=== PATIENT | female | born 1955 | race Caucasian/White ===

== ENCOUNTER 2016-03-30 19:32 | Inpatient (IN) | payer OTHER ==
[~2016-03-30] VITALS: Ht 160 cm; Wt 79.7 kg
[~2016-03-30 19:32] MED LIST: ADVA100A INH; ASPI81TA82 PO; ATOR40TA16 PO; FURO20TA PO; HYDR10TA65 PO; HYDR50CA PO; LEVO200T4 PO; METO25TA3 PO; NITR0.4S SL; PANT40TA3 PO; PLAV75TA29 PO; POTA-163 PO; SYMB160A INH; VENTAER INH; ZOFR4TAB PO
[2016-03-30 19:40] VITALS: PULSE 107; RESP 18; TEMP 97.4; O2SAT 97
[2016-03-31] VITALS (14 sets, daily range): BP systolic 80–142; BP diastolic 46–92; PULSE 91–123; RESP 14–20; TEMP 98; O2SAT 88–100
[2016-03-31] MEDS ORDERED: SODIUM CHLOR 0.9% 1000 ML INJ 1,000 ML IV SCH (06:49)
--- NOTE | 2016-03-31 06:57 | PD ---
HPI Chief Complaint: Abdominal Pain Time Seen by Provider: 06:46 Travel History International Travel<30 days: No Contact w/Intl Traveler<30days: No Traveled to known affect area: No History of Present Illness HPI Patient is a 60-year-old female who presents to emergency room with complaints of nausea vomiting for the past 5 days. Patient reports that she has not been able to eat or drink anything for the past 5 days, reports that today, she began to have diarrhea. Patient reports that her daughter is sick with similar symptoms. Patient denies fevers, reports chills. She reports pain to her lower abdomen. Patient denies taking any recent antibiotics. Patient with no recent travels PFSH Past Medical History Hx Anticoagulant Therapy: Yes (PLAVIX) Arthritis: Yes Asthma: Yes Autoimmune Disease: Yes Blood Disorders: No Anxiety: Yes Depression: Yes Heart Rhythm Problems: Yes Cancer: No Cardiac Catheterization: Yes Cardiovascular Problems: Yes (HTN, CHF) High Cholesterol: Yes Chemotherapy: No Chest Pain: Yes Congestive Heart Failure: Yes COPD: Yes Cerebrovascular Accident: No Coronary Artery Disease: Yes Diabetes: No Diminished Hearing: No Endocrine: Yes (APRIL DISEASE) Gastrointestinal Disorders: No GERD: Yes Glaucoma: No Genitourinary: No Headaches: No Hepatitis: No Hiatal Hernia: No Hypertension: Yes Immune Disorder: No Kidney Stones: No Musculoskeletal: Yes Neurologic: No Psychiatric: Yes Reproductive: Yes Respiratory: Yes (ASTHMA, COPD) Immunizations Current: No Migraines: No Myocardial Infarction: Yes Radiation Therapy: No Renal Failure: No Seizures: No Sickle Cell Disease: No Sleep Apnea: No Thyroid Disease: Yes Ulcer: No Menopausal: Yes : 2 Para: 2 Miscarriage: 0 : 0 Ovarian Cysts: Yes Tubal Ligation: Yes Past Surgical History Abdominal Surgery: No AICD: No Appendectomy: No Arteriovenous Shunt: No Body Medical Devices: ADDISONS DISEASE, OVER ACTIVE RENAL GLAND Cardiac Surgery: Yes (MITRAL VALVE REPLACEMENT, CABG) Section: Yes Cholecystectomy: No Coronary Artery Bypass Graft: Yes (CABG X 4) Ear Surgery: No Endocrine Surgery: Yes Eye Surgery: No Genitourinary Surgery: No Gynecologic Surgery: Yes (TUBAL LIGATION 40 YEARS AGO) Hysterectomy: Yes Insulin Pump: No Joint Replacement: No Oral Surgery: Yes (TEETH EXTRACTIONS) Pacemaker: No Thoracic Surgery: No Tonsillectomy: Yes Other Surgery: Yes Social History Alcohol Use: No Tobacco Use: No Substance Use: No Allergies-Medications (Allergen,Severity, Reaction): Coded Allergies: Tylenol (Verified Allergy, Severe, AGGRIVATES LIVER?, 03/30/16) Reported Meds & Prescriptions Reported Meds & Active Scripts Active Potassium Chloride ER (Potassium Chloride) 20 Meq Tab 20 Meq PO BID Ventolin Hfa 18 GM Inh (Albuterol Sulfate) 90 Mcg/Act Aer 1 Puff INH DAILY PRN Atorvastatin (Atorvastatin Calcium) 40 Mg Tab 40 Mg PO HS Pantoprazole (Pantoprazole Sodium) 40 Mg Tab 40 Mg PO DAILY Hydroxyzine Pamoate 50 Mg Cap 50 Mg PO TID PRN Plavix (Clopidogrel Bisulfate) 75 Mg Tab 75 Mg PO DAILY Aspir-81 (Aspirin) 81 Mg Tab 81 Mg PO DAILY Reported Metoprolol Tartrate 25 Mg Tab 25 Mg PO BID Symbicort Inh (Budesonide/Formoterol Fumarate) 160-4.5 Mcg/Act Aero 2 Puff INH Q12HR Advair Diskus Inh (Fluticasone-Salmeterol Inh) 100-50 Mcg/Blist Aer 1 Puff INH DAILY Rinse mouth after use. Furosemide 20 Mg Tab 20 Mg PO DAILY Levothyroxine (Levothyroxine Sodium) 200 Mcg Tab 200 Mcg PO DAILY Zofran (Ondansetron HCl) 4 Mg Tab 4 Mg PO Q12HR PRN Hydrocortisone 10 Mg Tab 10 Mg PO TID Take with food to decrease GI upset Nitrostat SL (Nitroglycerin) 0.4 Mg Subl 0.4 Mg SL DIRECTED PRN 1 tablet under the tongue as needed for chest pain. Repeat every 5 minutes for a total of 3 DOSES or call 911 if NO relief. Review of Systems General / Constitutional: No: Fever Eyes: No: Visual changes HENT: No: Headaches Cardiovascular: No: Chest Pain or Discomfort Respiratory: No: Shortness of Breath Gastrointestinal: Positive: Nausea, Vomiting, Diarrhea, Abdominal Pain Genitourinary: No: Dysuria Musculoskeletal: No: Pain Skin: No Rash Neurologic: No: Weakness Psychiatric: No: Depression Endocrine: No: Polydipsia Hematologic/Lymphatic: No: Easy Bruising Physical Exam Narrative GENERAL: nad SKIN: Warm and dry. HEAD: Atraumatic. Normocephalic. EYES: Pupils equal and round. No scleral icterus. No injection or drainage. ENT: No nasal bleeding or discharge. Mucous membranes pink and moist. NECK: Trachea midline. No JVD. CARDIOVASCULAR: Regular rate and rhythm. No murmur appreciated. RESPIRATORY: No accessory muscle use. Clear to auscultation. Breath sounds equal bilaterally. GASTROINTESTINAL: Abdomen soft, tenderness to lower abdomen with guarding on exam MUSCULOSKELETAL: No obvious deformities. No clubbing. No cyanosis. No edema. NEUROLOGICAL: Awake and alert. No obvious cranial nerve deficits. Motor grossly within normal limits. Normal speech. PSYCHIATRIC: Appropriate mood and affect; insight and judgment normal. Data Data Last Documented VS Vital Signs Date Time Temp Pulse Resp B/P Pulse Ox O2 Delivery O2 Flow Rate FiO2 03/31/16 06:06 18 03/30/16 19:40 97.4 107 97 Room Air Orders Complete Blood Count With Diff (03/31/16 06:49) Comprehensive Metabolic Panel (03/31/16 06:49) Lipase (03/31/16 06:49) Prothrombin Time / Inr (Pt) (03/31/16 06:49) Act Partial Throm Time (Ptt) (03/31/16 06:49) Urinalysis - C+S If Indicated (03/31/16 06:49) Ct Abd/Pel W/O Iv Contrast (03/31/16 06:49) Iv Access Insert/Monitor (03/31/16 06:49) Ecg Monitoring (03/31/16 06:49) Oximetry (03/31/16 06:49) Ondansetron Inj (Zofran Inj) (03/31/16 07:00) Sodium Chlor 0.9% 1000 Ml Inj (Ns 1000 M (03/31/16 06:49) Sodium Chloride 0.9% Flush (Ns Flush) (03/31/16 07:00) Electrocardiogram (03/31/16 06:49) Lactic Acid Sepsis Protocol (03/31/16 07:25) Blood Culture (03/31/16 07:25) Vancomycin Inj (Vancomycin Inj) (03/31/16 07:25) Piperacil-Tazo 4.5 Gm Premix (Zosyn 4.5 (03/31/16 07:25) Sodium Chlor 0.9% 1000 Ml Inj (Ns 1000 M (03/31/16 07:25) Sodium Chlor 0.9% 1000 Ml Inj (Ns 1000 M (03/31/16 07:25) Sodium Chlor 0.9% 1000 Ml Inj (Ns 1000 M (03/31/16 07:25) MDM Medical Decision Making Medical Screen Exam Complete: Yes Emergency Medical Condition: Yes Interpretation(s) Vital Signs Date Time Temp Pulse Resp B/P Pulse Ox O2 Delivery O2 Flow Rate FiO2 03/31/16 06:06 18 03/30/16 19:40 97.4 107 18 97 Room Air Differential Diagnosis Gastroenteritis, acute colitis, small bowel obstruction Narrative Course Patient is a 60 year old female who presents to ER with c/o of abdominal pain, Pt reports increased nausea and vomiting for the past 5 days. Patient reports that she has not been able to eat or drink for the past 5 days, reports that she has had increased diarrhea since this morning. Pt reports increased n/v/d for past 5 days. iv ordered, will hydrate pt with ivf, iv zofran given to patient, ct abdomen and pelvis ordered to further evaluate pt's abdominal pain Xiomara Velasco DO Mar 31, 2016 06:57
[2016-03-31] MEDS ORDERED: SODIUM CHLORIDE 0.9% FLUSH 5 ML FLUSH IVF PRN (07:00)
[2016-03-31] MEDS ORDERED: ONDANSETRON HCL 4 MG/2 ML VIAL IVP ONE (07:00)
--- NOTE | 2016-03-31 07:20 | RADRPT ---
EXAM DATE/TIME: 03/31/2016 06:57 [facility] COMPARISON: CT ABDOMEN & PELVIS W/O CONTRAST, March 28, 2015, 23:45. INDICATIONS : Evaluate for calculi. ORAL CONTRAST: No oral contrast ingested. RADIATION DOSE: 9.96 CTDIvol (mGy) MEDICAL HISTORY : Hypertension. SURGICAL HISTORY : Hysterectomy. ENCOUNTER: Initial ACUITY: 1 day PAIN SCALE: 9/10 LOCATION: abdomen. TECHNIQUE: Volumetric scanning of the abdomen and pelvis was performed. Using automated exposure control and ad justment of the mA and/or kV according to patient size, radiation dose was kept as low as reasonably achievable to obtain optimal diagnostic quality images. FINDINGS: LOWER LUNGS: The visualized lower lungs are clear. LIVER: Homogeneous density without lesion. There is no dilation of the biliary tree. No calcified gallston es. SPLEEN: Normal size without lesion. PANCREAS: Within normal limits. KIDNEYS: Normal in size and shape. There is no mass, stone, or hydronephrosis. No calcifications along the c ourse of ureters. ADRENAL GLANDS: Within normal limits. VASCULAR: There is no aortic aneurysm. Wall calcification in the abdominal aorta similar to prior. BOWEL/MESENTERY: The stomach, small bowel, and colon demonstrate no acute abnormality. There is no free intraperitone al air or fluid. ABDOMINAL WALL: Within normal limits. RETROPERITONEUM: There is no lymphadenopathy. BLADDER: No wall thickening or mass. REPRODUCTIVE: Within normal limits. INGUINAL: There is no lymphadenopathy or hernia. MUSCULOSKELETAL: Within normal limits for patient age. CONCLUSION: No evidence of renal stone, ureteral stone, or hydronephrosis. Nixon Ladd MD on March 31, 2016 at 7:16 Board Certified Radiologist. This report was verified electronically.
[2016-03-31] MEDS ORDERED: SODIUM CHLOR 0.9% 1000 ML INJ 1,000 ML IV ONE ×2 (07:25)
[2016-03-31] MEDS ORDERED: VANCOMYCIN INJ 1,000 MG in SODIUM CHLOR 0.9% 250 ML INJ 250 ML IV STA (07:25)
[2016-03-31] MEDS ORDERED: PIPERACIL-TAZO 4.5 GM PREMIX 100 ML IV STA (07:25)
[2016-03-31] MEDS ORDERED: SODIUM CHLOR 0.9% 1000 ML INJ 400 ML IV ONE (07:25)
[2016-03-31] MEDS ORDERED: methylPREDNISolone SOD SUCC 125 MG/2 ML VIAL IV PUSH ONE (07:30)
--- NOTE | 2016-03-31 08:31 | RADRPT ---
EXAM DATE/TIME: 03/31/2016 08:22 [facility] COMPARISON: CHEST SINGLE AP, November 16, 2015, 22:43. INDICATIONS : Patient complains of abdominal pain, vomiting, and shortness of breath. MEDICAL HISTORY : Hypertension. Chronic obstructive pulmonary disease. SURGICAL HISTORY : CABG. ENCOUNTER: Initial ACUITY: 4 - 6 days PAIN SCORE: 7/10 LOCATION: chest FINDINGS: A single view of the chest demonstrates the lungs to be symmetrically aerated without evidence of mas s, infiltrate or effusion. The cardiomediastinal contours are unremarkable. Sternal wires from prev ious CABG are noted. Osseous structures are intact. CONCLUSION: No acute disease. Amos Grande MD FACR on March 31, 2016 at 8:29 Board Certified Radiologist. This report was verified electronically.
[2016-03-31 09:24] LABS: AUTOMATED NEUTROPHIL # 14.4 TH/MM3 (1.8-7.7); BASOPHIL # 0.1 TH/MM3 (0-0.2); BASOPHIL % 0.7 % (0.0-2.0); EOSINOPHIL # 0.3 TH/MM3 (0-0.4); EOSINOPHIL % 1.9 % (0.0-4.0); HEMATOCRIT 46.2 % (35.0-46.0); HEMO FLAGS DIFF FINAL; LYMPH % 11.2 % (9.0-44.0); LYMPHOCYTE # 2.1 TH/MM3 (1.0-4.8); MEAN CELL VOLUME 88.6 FL (80.0-100.0); MEAN CORPUSCULAR HEMOGLOBIN 29.9 PG (27.0-34.0); MEAN CORPUSCULAR HGB CONC 33.7 % (32.0-36.0); MONO % 7.9 % (0.0-8.0); NEUT % 78.3 % (16.0-70.0); PLATELET COUNT 300 TH/MM3 (150-450); RED BLOOD COUNT 5.21 MIL/MM3 (4.00-5.30); RED CELL DISTRIBUTION WIDTH 14.1 % (11.6-17.2); WHITE BLOOD COUNT 18.4 TH/MM3 (4.0-11.0)
[2016-03-31 09:32] LABS: INTERNATIONAL NORMALIZED RATIO 1.3 RATIO; PROTHROMBIN TIME - PATIENT 14.7 SEC (9.8-11.6)
[2016-03-31 09:33] LABS: APTT (PATIENT) 38.7 SEC (24.3-30.1)
[2016-03-31 09:39] LABS: ANION GAP 13 MEQ/L (5-15); AST (GOT) 39 U/L (15-37); BICARBONATE 20.2 MEQ/L (21.0-32.0); CHLORIDE 98 MEQ/L (98-107); GLOMERULAR FILTRATION RATE 15 ML/MIN (>89); POTASSIUM 4.6 MEQ/L (3.5-5.1); SODIUM (NA) 131 MEQ/L (136-145)
[2016-03-31 10:03] LABS: ALKALINE PHOSPHATASE 144 U/L (45-117); ALT (GPT) 22 U/L (10-53); TOTAL BILIRUBIN ADULT 1.4 MG/DL (0.2-1.0)
[2016-03-31 10:06] LABS: BLOOD UREA NITROGEN 33 MG/DL (7-18)
[2016-03-31] MEDS ORDERED: ASPIRIN 325 MG TAB PO ONE (10:15)
[2016-03-31 10:20] LABS: BACTERIA, URINE OCC /hpf; BLOOD, URINE TRACE (NEG); COMMENT (UR) CULT NOT INDICATED; CULTURE IF INDICATED CULT NOT INDICATED; GLUCOSE,URINE NEG (NEG); HYALINE CAST, URINE 8 /lpf (RARE); KETONE, URINE NEG (NEG); MUCUS URINE FEW /lpf (OCC); NITRITE,URINE NEG (NEG); PH, URINE 5.5 (5.0-8.5); URINE COLOR YELLOW (YELLW/STRAW)
[2016-03-31] MEDS ORDERED: NOREPINEPHRINE 4 MG/4 ML AMP ONE (10:28)
[2016-03-31] MEDS ORDERED: NOREPINEPHRINE-DEXTROSE DRIP 250 ML IV SCH (10:30)
--- NOTE | 2016-03-31 11:21 | RADRPT ---
EXAM DATE/TIME: 03/31/2016 10:59 [facility] COMPARISON: CHEST SINGLE AP, March 31, 2016, 8:22. INDICATIONS : Central line placement MEDICAL HISTORY : Hypertension. Chronic obstructive pulmonary disease. SURGICAL HISTORY : CABG. ENCOUNTER: Initial ACUITY: 4 - 6 days PAIN SCORE: 7/10 LOCATION: Bilateral chest FINDINGS: Right IJ line in good position the pneumothorax. The lungs are clear. Sternal wires and valve repla cement noted. The portion of the bony skeleton visualized is unremarkable. CONCLUSION: Line in good position without pneumothorax. Evidence for previous valve replacement. Amos Grande MD FACR on March 31, 2016 at 11:19 Board Certified Radiologist. This report was verified electronically.
--- NOTE | 2016-03-31 11:26 | PD ---
Data Data Last Documented VS Vital Signs Date Time Temp Pulse Resp B/P Pulse Ox O2 Delivery O2 Flow Rate FiO2 03/31/16 09:58 103 20 84/46 100 Nasal Cannula 3 03/31/16 09:09 98.0 Orders Complete Blood Count With Diff (03/31/16 06:49) Comprehensive Metabolic Panel (03/31/16 06:49) Lipase (03/31/16 06:49) Prothrombin Time / Inr (Pt) (03/31/16 06:49) Act Partial Throm Time (Ptt) (03/31/16 06:49) Urinalysis - C+S If Indicated (03/31/16 06:49) Ct Abd/Pel W/O Iv Contrast (03/31/16 06:49) Iv Access Insert/Monitor (03/31/16 06:49) Ecg Monitoring (03/31/16 06:49) Oximetry (03/31/16 06:49) Ondansetron Inj (Zofran Inj) (03/31/16 07:00) Sodium Chlor 0.9% 1000 Ml Inj (Ns 1000 M (03/31/16 06:49) Sodium Chloride 0.9% Flush (Ns Flush) (03/31/16 07:00) Electrocardiogram (03/31/16 06:49) Lactic Acid Sepsis Protocol (03/31/16 07:25) Blood Culture (03/31/16 07:25) Vancomycin Inj (Vancomycin Inj) (03/31/16 07:25) Piperacil-Tazo 4.5 Gm Premix (Zosyn 4.5 (03/31/16 07:25) Sodium Chlor 0.9% 1000 Ml Inj (Ns 1000 M (03/31/16 07:25) Sodium Chlor 0.9% 1000 Ml Inj (Ns 1000 M (03/31/16 07:25) Sodium Chlor 0.9% 1000 Ml Inj (Ns 1000 M (03/31/16 07:25) Methylprednisolone So Succ Inj (Solumedr (03/31/16 07:30) Consult Vascular Access Team (03/31/16 ) Vascular Poc Ultrasound (03/31/16 ) Chest, Single Ap (03/31/16 ) Troponin I (03/31/16 08:55) Urinary Catheter Insert/Apply (03/31/16 09:59) Aspirin (Aspirin) (03/31/16 10:15) Ed Poc Ultrasound (03/31/16 10:22) Norepinephrine-Dextrose Drip (Levophed-D (03/31/16 10:30) Norepinephrine Inj (Levophed Inj) (03/31/16 10:28) Chest, Single Ap (03/31/16 ) Admit Order (Ed Use Only) (03/31/16 11:09) Labs Laboratory Tests Test 03/31/16 03/31/16 09:00 09:30 White Blood Count 18.4 TH/MM3 Red Blood Count 5.21 MIL/MM3 Hemoglobin 15.6 GM/DL Hematocrit 46.2 % Mean Corpuscular Volume 88.6 FL Mean Corpuscular Hemoglobin 29.9 PG Mean Corpuscular Hemoglobin 33.7 % Concent Red Cell Distribution Width 14.1 % Platelet Count 300 TH/MM3 Mean Platelet Volume 8.5 FL Neutrophils (%) (Auto) 78.3 % Lymphocytes (%) (Auto) 11.2 % Monocytes (%) (Auto) 7.9 % Eosinophils (%) (Auto) 1.9 % Basophils (%) (Auto) 0.7 % Neutrophils # (Auto) 14.4 TH/MM3 Lymphocytes # (Auto) 2.1 TH/MM3 Monocytes # (Auto) 1.4 TH/MM3 Eosinophils # (Auto) 0.3 TH/MM3 Basophils # (Auto) 0.1 TH/MM3 CBC Comment DIFF FINAL Differential Comment Prothrombin Time 14.7 SEC Prothromb Time International 1.3 RATIO Ratio Activated Partial 38.7 SEC Thromboplast Time Sodium Level 131 MEQ/L Potassium Level 4.6 MEQ/L Chloride Level 98 MEQ/L Carbon Dioxide Level 20.2 MEQ/L Anion Gap 13 MEQ/L Blood Urea Nitrogen 33 MG/DL Creatinine 3.17 MG/DL Estimat Glomerular Filtration 15 ML/MIN Rate Random Glucose 77 MG/DL Lactic Acid Level 1.0 mmol/L Calcium Level 9.5 MG/DL Total Bilirubin 1.4 MG/DL Aspartate Amino Transf 39 U/L (AST/SGOT) Alanine Aminotransferase 22 U/L (ALT/SGPT) Alkaline Phosphatase 144 U/L Troponin I 0.09 NG/ML Total Protein 6.0 GM/DL Albumin 3.0 GM/DL Lipase 77 U/L Urine Color YELLOW Urine Turbidity HAZY Urine pH 5.5 Urine Specific [place] 1.017 Urine Protein 30 mg/dL Urine Glucose (UA) NEG mg/dL Urine Ketones NEG mg/dL Urine Occult Blood TRACE Urine Nitrite NEG Urine Bilirubin NEG Urine Urobilinogen LESS THAN 2.0 MG/DL Urine Leukocyte Esterase MOD Urine RBC 1 /hpf Urine WBC 3 /hpf Urine Amorphous Sediment MOD Urine Bacteria OCC /hpf Urine Hyaline Casts 8 /lpf Urine Mucus FEW /lpf Microscopic Urinalysis Comment CULT NOT INDICATED MDM Supervised Visit with BIJAL: No Narrative Course Patient signed out to me by previous provider. Please see associated no for further details. In short patient is a 60-year-old female with history of CAD with previous CABG, HTN, HLD, COPD, Jorge's who presents the emergency department with 5 days of diffuse abdominal pain, nausea vomiting diarrhea. Patient evaluated by previous provider, laboratory workup and imaging were ordered and signed out to me pending results of same. At 7:15 when I took over for her patient's care unfortunately despite her long ED stay patient is not documented to have any blood pressures obtained in our electronic medical record. I asked nursing to perform this and patient is hypotensive. She was given a total 4 L normal saline bolus. Her IVC was ultrasounded initially with respiratory variability and ultimately no respiratory variability. After this, a right IJ central line was placed and patient was started on vasopressor. Laboratory workup notable for leukocytosis 18.4. Acute renal failure with BUN 33, creatinine 3.17. My strong suspicion is that this is prerenal due to patient's nausea vomiting diarrhea. Her troponin is slightly elevated 0.09 but her EKG is at baseline with sinus tachycardia with diffuse T-wave inversions throughout the precordial and lateral leads. This is similar to patient's previous EKG. He not think that this is non-ST elevation PA but rather demand ischemia. Patient had cardiology consult on her last visit with similar troponinemic and recommended medical management. She had an echo in October 2015 showing an EF of 55%. She certainly could tolerate the above IV fluid boluses. Patient's urinalysis unremarkable. Chest x-ray and CT abdomen and pelvis were both negative. Given her history of Chester's, she was treated with stress dose steroids. At this time is my strong suspicion that her hypotension is confounded by hypovolemic shock with addisonian crisis. Patient will be admitted to intensive this or further management. Critical Care Narrative Aggregate critical care time was 55 minutes. Time to perform other separately billable procedures was not included in the critical care time. My time did not include minutes spent treating any other patients simultaneously or on activities that did not directly contribute to the patient's treatment. The services I provided to this patient were to treat and/or prevent clinically significant deterioration that could result in: Cardiopulmonary decompensation, , disability I provided critical care services requiring my management, as noted below: Chart data review, documentation time, medication orders and management, vital sign assessments/reviewing monitor data, ordering and reviewing lab tests, ordering and interpreting/reviewing x-rays and diagnostic studies, care of the patient and discussion of the patient with the admitting physicians. Procedures Procedure Narrative CENTRAL VENOUS LINE: The site was prepped with Betadine and sterilely draped. It was infiltrated with 1% lidocaine plain. The deep vein was cannulated using normal Seldinger technique. A triple lumen central line was placed in the right IJ site and secured with simple interrupted suture. The site was sterilely dressed. The patient tolerated the procedure well. Patient consented to bedside ultrasound. Curvilinear probe was used in the epigastric region revealing initially no respiratory variability of the IVC. Diagnosis Primary Impression: Hypovolemic shock Additional Impressions: Addisonian crisis Leukocytosis Qualified Code: D72.829 - Leukocytosis, unspecified type Nausea vomiting and diarrhea Abdominal pain Qualified Code: R10.84 - Generalized abdominal pain Acute renal failure Qualified Code: N17.9 - Acute renal failure, unspecified acute renal failure type Hypotension Qualified Code: I95.89 - Other specified hypotension Tachycardia Elevated troponin Demand ischemia Admitting Information Admitting Physician Requests: Admit Elli Martinez MD Mar 31, 2016 11:26
--- NOTE | 2016-03-31 11:34 | EKG ---
Date Performed: 03/31/2016 Time Performed: 07:27:51 PTAGE: 60 years EKG: SINUS TACHYCARDIA ST DEVIATION AND MODERATE T-WAVE ABNORMALITY, CONSIDER ANTEROLATERAL ISCH EMIA ABNORMAL ECG PREVIOUS TRACING : 11/20/2015 11.38 Rate has increased, some changes noted in ST/T waves in com parison anteriorly DOCTOR: Dayday Feliciano Interpretating Date/Time 03/31/2016 11:33:11
[2016-03-31] MEDS ORDERED: SODIUM CHLORIDE 0.9% FLUSH 5 ML FLUSH IV FLUSH PRN (12:30)
[2016-03-31] MEDS ORDERED: MISCELLANEOUS NURSING INFORMATION XX SCH (12:30)
[2016-03-31] MEDS ORDERED: ONDANSETRON HCL 4 MG/2 ML VIAL IV PRN (12:30)
[2016-03-31] MEDS ORDERED: DEXTROSE 50% IN WATER 50 ML VIAL(D50) IV PUSH PRN (12:30)
[2016-03-31] MEDS ORDERED: RESP: ALBUTEROL 2.5 MG/IPRATROPIUM 0.5 MG NEB (PRN) INH (12:30)
[2016-03-31] MEDS ORDERED: CHLORHEXIDINE GLUCONATE 2 % 1 PACK (2 CLOTHS) TOP PRN (12:30)
[2016-03-31] MEDS ORDERED: ACETAMINOPHEN 325 MG TAB PO PRN (12:30)
[2016-03-31] MEDS ORDERED: Vancomycin Consult Pharmacy 1 EA OTHER SCH (12:30)
[2016-03-31] MEDS: HYDROCORTISONE SOD SUCCINATE 100 MG VIAL IV PUSH SCH ×3 (15:26→23:42)
[2016-03-31] MEDS: HEPARIN SODIUM - SQ 10,000 UNITS/ML VIAL SQ SCH ×2 (15:27→23:42)
--- NOTE | 2016-03-31 15:55 | HHI.HP ---
[facility] Service Critical Care Medicine Primary Care Physician Rosalba Monroe MD Admission Diagnosis hypovolemic shock, addisonian crisis, rule out sepsis Diagnosis: Chief Complaint: nausea/vomiting Travel History International Travel<30 Days: No Contact w/Intl Traveler <30 Da: No Traveled to Known Affected Are: No History of Present Illness This is a 60yF with h/o Jorge's disease who presents with about 3 days of severe nausea and vomiting. She states she ran out of her hydrocortisone about 3 or 4 days ago, and since then has had progressive nausea and vomiting. she initially presented to the emergency department with significant tachycardia and hypotension. She received 4L NS boluses which she was initially fluid responsive, followed by bedside echocardiogram which demonstrated that she had a plump IVC. At this point she was started on norepinephrine for end-organ perfusion. She was given a dose of steroids in the emergency department since she has not had her own medication in at least 3 days. Her wbc was elevated at 18K so she was started on broad spectrum antibiotics and blood cultures were drawn. Her lactate is normal. Her creatinine is elevated at 3.17. Critical care medicine has been consulted to evaluate her hypotension. I evaluated the patient and she confirmed the above history of nausea and vomiting. denies hematemesis, denies fever, chills, cough, shortness of breath, chest pain. does endorse mild crampy abdominal pain, and only a half-day history of diarrhea. no dark tarry stools. Review of Systems Constitutional: DENIES: Diaphoretic episodes, Fever, Chills, Night Sweats Respiratory: DENIES: Cough, Wheezing, Hemoptysis, Sputum production, Shortness of breath Cardiovascular: DENIES: Chest pain, Palpitations, Dyspnea on Exertion, Lower Extremity Edema Gastrointestinal: COMPLAINS OF: Abdominal pain, Diarrhea, Nausea, Vomiting Past Family Social History Allergies: Coded Allergies: Tylenol (Verified Allergy, Severe, AGGRIVATES LIVER?, 03/30/16) Past Medical History Jorge's disease Depression Anxiety Asthma Arthritis hypertension CHF, unknown type hyperlipidemia CAD GERD [place] Past Surgical History Delivery CABG x 4 Mitral Valve replacement Hysterectomy with BTL Teeth extractions Tonsillectomy Reported Medications Potassium Chloride ER (Potassium Chloride) 20 Meq Tab 20 Meq PO BID Ventolin Hfa 18 GM Inh (Albuterol Sulfate) 90 Mcg/Act Aer 1 Puff INH DAILY PRN Atorvastatin (Atorvastatin Calcium) 40 Mg Tab 40 Mg PO HS Pantoprazole (Pantoprazole Sodium) 40 Mg Tab 40 Mg PO DAILY Hydroxyzine Pamoate 50 Mg Cap 50 Mg PO TID PRN Plavix (Clopidogrel Bisulfate) 75 Mg Tab 75 Mg PO DAILY Aspir-81 (Aspirin) 81 Mg Tab 81 Mg PO DAILY Metoprolol Tartrate 25 Mg Tab 25 Mg PO BID Symbicort Inh (Budesonide/Formoterol Fumarate) 160-4.5 Mcg/Act Aero 2 Puff INH Q12HR Advair Diskus Inh (Fluticasone-Salmeterol Inh) 100-50 Mcg/Blist Aer 1 Puff INH DAILY Rinse mouth after use. Furosemide 20 Mg Tab 20 Mg PO DAILY Levothyroxine (Levothyroxine Sodium) 200 Mcg Tab 200 Mcg PO DAILY Zofran (Ondansetron HCl) 4 Mg Tab 4 Mg PO Q12HR PRN Hydrocortisone 10 Mg Tab 10 Mg PO TID Take with food to decrease GI upset Nitrostat SL (Nitroglycerin) 0.4 Mg Subl 0.4 Mg SL DIRECTED PRN 1 tablet under the tongue as needed for chest pain. Repeat every 5 minutes for a total of 3 DOSES or call 911 if NO relief. Active Ordered Medications See MAR Family History Reviewed and found to be noncontributory to her acute illness. Social History denies tob, etoh, doa. Physical Exam Vital Signs Vital Signs Date Time Temp Pulse Resp B/P Pulse Ox O2 Delivery O2 Flow Rate FiO2 03/31/16 15:20 103 16 111/54 100 Nasal Cannula 3 03/31/16 14:26 105 14 128/71 100 Nasal Cannula 3 03/31/16 13:28 107 16 121/66 100 Nasal Cannula 3 03/31/16 11:59 106 16 100/54 100 Nasal Cannula 3 03/31/16 09:58 103 20 84/46 100 Nasal Cannula 3 03/31/16 09:09 98.0 107 16 80/53 100 Nasal Cannula 3 03/31/16 08:16 117 18 104/50 95 Nasal Cannula 2 03/31/16 07:29 Nasal Cannula 2 03/31/16 07:28 123 16 88/53 88 Room Air 03/31/16 06:06 18 03/30/16 19:40 97.4 107 18 97 Room Air Physical Exam GENERAL: Middle-aged woman, lying in bed HEENT: Normocephalic. Atraumatic. Pupils equally round and reactive. Mucous membranes are moist. NECK: Trachea is midline. There is no JVD. CHEST: Equal chest rise. Clear to auscultation. CARDIOVASCULAR: Normal rate, regular rhythm. S1 and S2 without appreciable murmurs. ABDOMEN: Soft, mildly tender to palpation, nondistended. No guarding or rebound tenderness. MUSCULOSKELETAL: 1+ peripheral edema. 2+ distal pulses. NEUROLOGICAL: RASS 0. Follows commands in all 4 extremity's. No gross focal motor sensory deficits. Laboratory Laboratory Tests Test 03/31/16 03/31/16 09:00 09:30 White Blood Count 18.4 Red Blood Count 5.21 Hemoglobin 15.6 Hematocrit 46.2 Mean Corpuscular Volume 88.6 Mean Corpuscular Hemoglobin 29.9 Mean Corpuscular Hemoglobin 33.7 Concent Red Cell Distribution Width 14.1 Platelet Count 300 Mean Platelet Volume 8.5 Neutrophils (%) (Auto) 78.3 Lymphocytes (%) (Auto) 11.2 Monocytes (%) (Auto) 7.9 Eosinophils (%) (Auto) 1.9 Basophils (%) (Auto) 0.7 Neutrophils # (Auto) 14.4 Lymphocytes # (Auto) 2.1 Monocytes # (Auto) 1.4 Eosinophils # (Auto) 0.3 Basophils # (Auto) 0.1 CBC Comment DIFF FINAL Differential Comment Prothrombin Time 14.7 Prothromb Time International 1.3 Ratio Activated Partial 38.7 Thromboplast Time Sodium Level 131 Potassium Level 4.6 Chloride Level 98 Carbon Dioxide Level 20.2 Anion Gap 13 Blood Urea Nitrogen 33 Creatinine 3.17 Estimat Glomerular Filtration 15 Rate Random Glucose 77 Lactic Acid Level 1.0 Calcium Level 9.5 Total Bilirubin 1.4 Aspartate Amino Transf 39 (AST/SGOT) Alanine Aminotransferase 22 (ALT/SGPT) Alkaline Phosphatase 144 Troponin I 0.09 Total Protein 6.0 Albumin 3.0 Lipase 77 Urine Color YELLOW Urine Turbidity HAZY Urine pH 5.5 Urine Specific [place] 1.017 Urine Protein 30 Urine Glucose (UA) NEG Urine Ketones NEG Urine Occult Blood TRACE Urine Nitrite NEG Urine Bilirubin NEG Urine Urobilinogen LESS THAN 2.0 Urine Leukocyte Esterase MOD Urine RBC 1 Urine WBC 3 Urine Amorphous Sediment MOD Urine Bacteria OCC Urine Hyaline Casts 8 Urine Mucus FEW Microscopic Urinalysis Comment CULT NOT INDICATED Date/Time Procedure Status Source Growth 03/31/16 08:05 Aerobic Blood Culture Received Blood Peripheral Pending 03/31/16 08:05 Anaerobic Blood Culture Received Blood Peripheral Pending Result Diagram: 03/31/16 0900 03/31/16 0900 Assessment and Plan Assessment and Plan Assessment: This is a 60yF with history of Bracken's disease who acutely stopped her steroids and now presents with a few days of nausea, vomiting, diarrhea and tachycardia and hypotension. The differential for her hypotension and tachycardia is hypovolemia secondary to severe dehydration and adrenal insufficiency leading to hemodynamic instability. Certainly acute withdraw of steroids could cause nausea and vomiting, but unlikely to cause abdominal pain and diarrhea. Certainly viral gastroenteritis could be a cause of her symptoms and concomitant steroid withdraw could account for the hypotension. For now, without vasopressors, she would become unstable, and she remains critically ill at this time. Active Problems: Acute adrenal insufficiency Severe Dehydration Possible gastroenteritis Possible septic shock Acute kidney injury Plan: --admit to the ICU --continue vanc with pharmacy dosing and zosyn 2.25gm iv q8h (renal dose) --lemus culture --continue norepinephrine for goal map > 65 --start hydrocortisone 50mg iv q6h --mivf NS @ 100cc/hr. --NPO while nauseated --SQH, SCDs for DVT prophylaxis. no indication for GI prophylaxis --strict I/Os with landry. trend Cr. Critical care time: 34 minutes, exclusive of procedures. Code Status Full Code Magdiel Dumont MD Mar 31, 2016 15:55
[2016-03-31] MEDS: INSULIN NovoLIN REGULAR SUPPLEMENTAL SCALE SQ SCH (18:00)
[2016-03-31] MEDS: PIPERACIL-TAZO 2.25 GM PREMIX 50 ML IV SCH (18:29)
[2016-03-31] MEDS: SODIUM CHLOR 0.9% 1000 ML INJ 1,000 ML IV SCH (18:29)
[2016-03-31] MEDS: SODIUM CHLORIDE 0.9% FLUSH 5 ML FLUSH IV FLUSH SCH (21:00)
[2016-03-31] MEDS: FAMOTIDINE 20 MG TAB PO SCH (23:42)
[2016-04-01] VITALS (24 sets, daily range): BP systolic 116–143; BP diastolic 60–93; PULSE 55–110; RESP 16–20; TEMP 97.8–98.8; O2SAT 94–99
[2016-04-01] MEDS: SODIUM CHLOR 0.9% 1000 ML INJ 1,000 ML IV SCH ×3 (03:00→23:00)
[2016-04-01] MEDS: CHLORHEXIDINE GLUCONATE 2 % 1 PACK (2 CLOTHS) TOP SCH (04:00)
[2016-04-01 04:32] LABS: HEMATOCRIT 37.8 % (35.0-46.0); MEAN CELL VOLUME 89.4 FL (80.0-100.0); MEAN CORPUSCULAR HEMOGLOBIN 29.9 PG (27.0-34.0); MEAN CORPUSCULAR HGB CONC 33.4 % (32.0-36.0); PLATELET COUNT 227 TH/MM3 (150-450); RED BLOOD COUNT 4.22 MIL/MM3 (4.00-5.30); REVIEW FLAG FINAL; WHITE BLOOD COUNT 18.3 TH/MM3 (4.0-11.0)
[2016-04-01 05:01] LABS: BICARBONATE 15.4 MEQ/L (21.0-32.0); POTASSIUM 5.4 MEQ/L (3.5-5.1)
[2016-04-01] MEDS: INSULIN NovoLIN REGULAR SUPPLEMENTAL SCALE SQ SCH ×4 (05:51→17:16)
[2016-04-01] MEDS: HEPARIN SODIUM - SQ 10,000 UNITS/ML VIAL SQ SCH ×3 (06:44→22:20)
[2016-04-01] MEDS: HYDROCORTISONE SOD SUCCINATE 100 MG VIAL IV PUSH SCH ×3 (06:44→22:20)
--- NOTE | 2016-04-01 07:48 | HHI.PR ---
Subjective Remarks f/u; hypotension/nausea. vomiting resting comfortably. nausea/vomiting has resolved. denies pain or any other complaints. Objective Vitals Vital Signs Date Time Temp Pulse Resp B/P Pulse Ox O2 Delivery O2 Flow Rate FiO2 04/01/16 06:00 95 04/01/16 05:00 93 04/01/16 04:00 93 04/01/16 04:00 98.0 96 20 116/63 99 04/01/16 03:00 94 04/01/16 02:00 94 04/01/16 01:00 96 04/01/16 00:00 98.0 96 20 123/60 99 04/01/16 00:00 96 03/31/16 23:00 96 03/31/16 22:00 98.0 94 20 142/92 99 03/31/16 22:00 96 03/31/16 20:43 94 18 136/85 98 Room Air 03/31/16 20:00 100 03/31/16 19:06 91 18 130/80 98 Room Air 03/31/16 18:47 103 14 128/83 96 Room Air 03/31/16 15:20 103 16 111/54 100 Nasal Cannula 3 03/31/16 14:26 105 14 128/71 100 Nasal Cannula 3 03/31/16 13:28 107 16 121/66 100 Nasal Cannula 3 03/31/16 11:59 106 16 100/54 100 Nasal Cannula 3 03/31/16 09:58 103 20 84/46 100 Nasal Cannula 3 03/31/16 09:09 98.0 107 16 80/53 100 Nasal Cannula 3 03/31/16 08:16 117 18 104/50 95 Nasal Cannula 2 I/O 03/31/16 03/31/16 03/31/16 04/01/16 04/01/16 04/01/16 07:00 15:00 23:00 07:00 15:00 23:00 Intake Total 100 ml 1580 ml Output Total 425 ml 350 ml Balance -325 ml 1230 ml Intake Oral 100 ml 480 ml IV Total 1100 ml Output Urine Total 425 ml 350 ml # Voids 0 Result Diagram: 04/01/16 0336 04/01/16 0336 Imaging Last Impressions Abdomen/Pelvis CT 03/31/16 0649 Signed Impressions: Service Date/Time: Thursday, March 31, 2016 06:57 - CONCLUSION: No evidence of renal stone, ureteral stone, or hydronephrosis. Nixon Ladd MD Chest X-Ray 03/31/16 0000 Signed Impressions: Service Date/Time: Thursday, March 31, 2016 10:59 - CONCLUSION: Line in good position without pneumothorax. Evidence for previous valve replacement. Amos Grande MD FACR Objective Remarks GENERAL: This is a well-nourished, well-developed patient, in no apparent distress. CARDIOVASCULAR: Regular rate and regular rhythm without murmurs, gallops, or rubs. RESPIRATORY: Clear to auscultation. Breath sounds equal bilaterally. No wheezes , rales, or rhonchi. GASTROINTESTINAL: Abdomen soft, non-tender, nondistended. Normal, active bowel sounds MUSCULOSKELETAL: Extremities with mild bilateral pedal edema. NEURO: Alert & Oriented x4 to person, place, time, situation. Moves all ext x4 Medications and IVs Current Medications Ondansetron HCl 4 mg 4 mg ONCE ONCE IVP Last administered on 03/31/16 07:17; Start 03/31/16 at 07:00; Stop 03/31/16 at 07:01; Status DC Sodium Chloride (NS 1000 ml Inj) 1,000 ml @ 1,000 mls/hr Q1H IV Last administered on 03/31/16 07:17; Start 03/31/16 at 06:49; Stop 03/31/16 at 07:48; Status DC IV Flush 2 ml 2 ml UNSCH PRN IVF FLUSH AFTER USING IV ACCESS; Start 03/31/16 at 07:00; Stop 03/31/16 at 13:33; Status DC Vancomycin HCl 1000 mg/Sodium Chloride 250 ml @ 250 mls/hr ONCE STAT IV Last administered on 03/31/16 08:25; Start 03/31/16 at 07:25; Stop 03/31/16 at 08:24; Status DC Piperacillin Sod/ Tazobactam Sod 100 ml @ 200 mls/hr ONCE STAT IV Last administered on 03/31/16 08:25; Start 03/31/16 at 07:25; Stop 03/31/16 at 07:54; Status DC Sodium Chloride 1,000 ml @ 1,000 mls/hr Q1H ONCE IV Last administered on 07:33; Start 03/31/16 at 07:25; Stop 03/31/16 at 08:24; Status DC Sodium Chloride 1,000 ml @ 1,000 mls/hr Q1H ONCE IV Last administered on 07:25; Start 03/31/16 at 07:25; Stop 03/31/16 at 08:24; Status DC Sodium Chloride (NS 1000 ml Inj) 400 ml @ 1,000 mls/hr Q24M ONCE IV Last administered on 03/31/16 07:25; Start 03/31/16 at 07:25; Stop 03/31/16 at 07:48; Status DC Methylprednisolone Sodium Succinate (SoluMEDROL INJ) 125 mg ONCE ONCE IV PUSH Last administered on 03/31/16 07:37; Start 03/31/16 at 07:30; Stop 03/31/16 at 07: 31; Status DC Aspirin 325 mg 325 mg ONCE ONCE PO Last administered on 03/31/16 12:05; Start 03/31/16 at 10:15; Stop 03/31/16 at 10:16; Status DC Norepinephrine Bitartrate (Levophed-Dextrose Drip) 250 ml @ 0 mls/hr TITRATE IV Last administered on 03/31/16 11:05; Start 03/31/16 at 10:30 Norepinephrine Bitartrate (Levophed Inj) 4 mg STK-MED ONCE .ROUTE ; Start at 10:28; Stop 03/31/16 at 10:29; Status DC Hydrocortisone Sodium Succinate 50 mg 50 mg Q6HR IV PUSH Last administered on 06:44; Start 03/31/16 at 14:00 Pharmacy Profile Note 0 ml @ 0 mls/hr UNSCH OTHER ; Start 03/31/16 at 12:30 Piperacillin Sod/ Tazobactam Sod (Zosyn 2.25 Gm Premix) 50 ml @ 100 mls/hr Q8H IV Last administered on 04/01/16 00:00; Start 03/31/16 at 16:00 Dextrose (D50w (Vial) Inj) 25 ml UNSCH PRN IV PUSH HYPOGLYCEMIA-SEE COMMENTS; Start 03/31/16 at 12:30 Insulin Human Regular (NovoLIN R SUPPLEMENTAL SCALE) 1 Q6HR SQ Last administered on 04/01/16 00:00; Start 03/31/16 at 18:00 IV Flush (NS Flush) 2 ml UNSCH PRN IV FLUSH FLUSH AFTER USING IV ACCESS; Start 03/31/16 at 12:30 IV Flush (NS Flush) 2 ml BID IV FLUSH ; Start 03/31/16 at 21:00 Acetaminophen (Tylenol) 650 mg Q6H PRN PO PAIN 1-10 AND/OR FEVER >101F; Start 03/31/16 at 12:30; Status UNV Famotidine (Pepcid) 10 mg Q12HR PO Last administered on 03/31/16 23:42; Start 03/31/16 at 21:00 Ondansetron HCl (Zofran Inj) 4 mg Q6H PRN IV NAUSEA OR VOMITING; Start 03/31/16 at 12:30 Albuterol/ Ipratropium (Duoneb Neb) 1 ampule Q2HR NEB PRN INH WHEEZING; Start 03/31/16 at 12:30 Heparin Sodium (Porcine) (Heparin Inj) 5,000 units Q8H SQ Last administered on 04/01/16 06:44; Start 03/31/16 at 14:00 Miscellaneous Information 1 Q361D XX ; Start 03/31/16 at 12:30 Chlorhexidine Gluconate (Chlorhexidine 2% Cloth) 3 pack Taper DAILY@04 TOP ; Start 04/01/16 at 04:00; Stop 03/28/17 at 03:59 Chlorhexidine Gluconate 3 pack 3 pack UNSCH PRN TOP HYGIENIC CARE; Start at 12:30 Sodium Chloride (NS 1000 ml Inj) 1,000 ml @ 100 mls/hr Q10H IV Last administered on 04/01/16 03:00; Start 03/31/16 at 17:00 A/P Assessment and Plan A/P Acute adrenal insufficiency taper down IV steroids- Acute kidney injury / Severe Dehydration due to vomiting improving- continue IV fluid and continue to monitor renal function closely leukocytosis- afebrile- continue Abx- repeat UA and follow the cultures CAD- s/p CABG; resume aspirin and plavix COPD with no exacerbation; resume home meds DVT prophylaxis with subq heparin Discharge Planning possible discharge within the next 24-48 hrs if stable and renal function continues to improve. Neftali Menchaca MD Apr 01, 2016 07:48
[2016-04-01] MEDS: FAMOTIDINE 20 MG TAB PO SCH ×2 (08:08→20:17)
[2016-04-01] MEDS: PIPERACIL-TAZO 2.25 GM PREMIX 50 ML IV SCH ×3 (08:09→16:08)
[2016-04-01] MEDS: SODIUM CHLORIDE 0.9% FLUSH 5 ML FLUSH IV FLUSH SCH ×2 (08:09→20:17)
[2016-04-01] MEDS ORDERED: ASPIRIN 81 MG CHEW TAB ONE (08:26)
[2016-04-01] MEDS: ASPIRIN 81 MG CHEW TAB PO SCH (09:15)
[2016-04-01] MEDS: BUDESONIDE-FORMOTEROL 160/4.5 MCG INHALER INH SCH ×2 (09:16→20:17)
[2016-04-01] MEDS: LEVOTHYROXINE SODIUM 200 MCG TAB PO SCH (09:16)
[2016-04-01] MEDS: CLOPIDOGREL 75 MG TAB PO SCH (09:16)
[2016-04-01 09:44] LABS: BACTERIA, URINE RARE /hpf; BLOOD, URINE LARGE (NEG); GLUCOSE,URINE TRACE mg/dL (NEG); KETONE, URINE 10 mg/dL (NEG); MUCUS URINE FEW /lpf (OCC); NITRITE,URINE NEG (NEG); SQUAMOUS EPITHELIAL CELL URINE <1 /hpf (0-5); TRANSITIONAL EPI CELLS, URINE <1 /hpf; URIC ACID CRYSTALS, URINE FEW /hpf; URINE COLOR YELLOW (YELLW/STRAW)
[2016-04-01 09:47] LABS: COMMENT (UR) CULT NOT INDICATED; CULTURE IF INDICATED CULT NOT INDICATED
[2016-04-01] MEDS ORDERED: VANCOMYCIN 1,000 MG/NS 250 ML IV ONE ×2 (10:00)
[2016-04-02] VITALS (27 sets, daily range): BP systolic 109–127; BP diastolic 73–84; PULSE 55–88; RESP 16–20; TEMP 97.8–98.4; O2SAT 92–99
[2016-04-02] MEDS: PIPERACIL-TAZO 2.25 GM PREMIX 50 ML IV SCH ×2 (00:34→08:58)
[2016-04-02] MEDS: CHLORHEXIDINE GLUCONATE 2 % 1 PACK (2 CLOTHS) TOP SCH (04:00)
[2016-04-02] MEDS: INSULIN NovoLIN REGULAR SUPPLEMENTAL SCALE SQ SCH ×5 (06:00→23:19)
[2016-04-02] MEDS: HEPARIN SODIUM - SQ 10,000 UNITS/ML VIAL SQ SCH (06:27)
[2016-04-02] MEDS: LEVOTHYROXINE SODIUM 200 MCG TAB PO SCH (06:27)
[2016-04-02] MEDS: HYDROCORTISONE SOD SUCCINATE 100 MG VIAL IV PUSH SCH ×2 (06:27→23:13)
[2016-04-02] MEDS: ASPIRIN 81 MG CHEW TAB PO SCH (08:58)
[2016-04-02] MEDS: CLOPIDOGREL 75 MG TAB PO SCH (08:58)
[2016-04-02] MEDS: BUDESONIDE-FORMOTEROL 160/4.5 MCG INHALER INH SCH ×2 (08:58→23:18)
[2016-04-02] MEDS: FAMOTIDINE 20 MG TAB PO SCH ×2 (08:58→23:14)
[2016-04-02] MEDS: SODIUM CHLORIDE 0.9% FLUSH 5 ML FLUSH IV FLUSH SCH ×2 (08:59→23:14)
[2016-04-02] MEDS: SODIUM CHLOR 0.9% 1000 ML INJ 1,000 ML IV SCH ×2 (08:59→17:23)
[2016-04-02 11:07] LABS: HEMATOCRIT 34.3 % (35.0-46.0); MEAN CELL VOLUME 87.7 FL (80.0-100.0); MEAN CORPUSCULAR HEMOGLOBIN 29.5 PG (27.0-34.0); MEAN CORPUSCULAR HGB CONC 33.6 % (32.0-36.0); PLATELET COUNT 221 TH/MM3 (150-450); RED BLOOD COUNT 3.92 MIL/MM3 (4.00-5.30); RED CELL DISTRIBUTION WIDTH 14.2 % (11.6-17.2); REVIEW FLAG FINAL; WHITE BLOOD COUNT 11.3 TH/MM3 (4.0-11.0)
--- NOTE | 2016-04-02 11:52 | HHI.PR ---
Subjective Remarks in no acute distress. denies pain. has diarrhea. no fever. Objective Vitals Vital Signs Date Time Temp Pulse Resp B/P Pulse Ox O2 Delivery O2 Flow Rate FiO2 04/02/16 11:00 82 04/02/16 11:00 98.1 81 18 124/73 98 04/02/16 10:00 74 04/02/16 09:00 75 04/02/16 09:00 75 04/02/16 08:07 96 21 04/02/16 08:00 73 04/02/16 07:00 85 04/02/16 07:00 98.4 78 16 117/81 96 04/02/16 06:00 74 04/02/16 05:07 74 04/02/16 04:59 98.0 77 20 127/73 99 04/02/16 04:00 77 04/02/16 03:00 77 04/02/16 02:00 55 04/02/16 01:00 55 04/02/16 00:00 82 04/02/16 00:00 97.9 82 20 120/73 99 04/01/16 23:00 55 04/01/16 22:00 56 04/01/16 21:00 60 04/01/16 21:00 63 04/01/16 20:00 97.9 84 20 121/82 99 04/01/16 20:00 60 04/01/16 19:00 59 04/01/16 18:00 89 04/01/16 17:00 82 04/01/16 16:00 86 04/01/16 16:00 98.7 84 18 130/82 98 04/01/16 15:00 86 04/01/16 14:00 86 04/01/16 13:00 86 04/01/16 12:00 90 04/01/16 12:00 98.8 88 16 116/93 95 I/O 04/01/16 04/01/16 04/01/16 04/02/16 04/02/16 04/02/16 07:00 15:00 23:00 07:00 15:00 23:00 Intake Total 1580 ml 1828 ml 1580 ml Output Total 350 ml 650 ml 750 ml Balance 1230 ml 1178 ml 830 ml Intake Oral 480 ml 780 ml 480 ml IV Total 1100 ml 1048 ml 1100 ml Output Urine Total 350 ml 650 ml 750 ml # Bowel Movements 1 Result Diagram: 04/02/16 1050 04/01/16 0336 Imaging Last Impressions Abdomen/Pelvis CT 03/31/16 0649 Signed Impressions: Service Date/Time: Thursday, March 31, 2016 06:57 - CONCLUSION: No evidence of renal stone, ureteral stone, or hydronephrosis. Nixon Ladd MD Chest X-Ray 03/31/16 0000 Signed Impressions: Service Date/Time: Thursday, March 31, 2016 10:59 - CONCLUSION: Line in good position without pneumothorax. Evidence for previous valve replacement. Amos Grande MD FACR Objective Remarks GENERAL: This is a well-nourished, well-developed patient, in no apparent distress. CARDIOVASCULAR: Regular rate and regular rhythm without murmurs, gallops, or rubs. RESPIRATORY: Clear to auscultation. Breath sounds equal bilaterally. No wheezes , rales, or rhonchi. GASTROINTESTINAL: Abdomen soft, non-tender, nondistended. Normal, active bowel sounds MUSCULOSKELETAL: Extremities with mild bilateral pedal edema. NEURO: Alert & Oriented x4 to person, place, time, situation. Moves all ext x4 Procedures none Medications and IVs Current Medications Ondansetron HCl 4 mg 4 mg ONCE ONCE IVP Last administered on 03/31/16 07:17; Start 03/31/16 at 07:00; Stop 03/31/16 at 07:01; Status DC Sodium Chloride (NS 1000 ml Inj) 1,000 ml @ 1,000 mls/hr Q1H IV Last administered on 03/31/16 07:17; Start 03/31/16 at 06:49; Stop 03/31/16 at 07:48; Status DC IV Flush 2 ml 2 ml UNSCH PRN IVF FLUSH AFTER USING IV ACCESS; Start 03/31/16 at 07:00; Stop 03/31/16 at 13:33; Status DC Vancomycin HCl 1000 mg/Sodium Chloride 250 ml @ 250 mls/hr ONCE STAT IV Last administered on 03/31/16 08:25; Start 03/31/16 at 07:25; Stop 03/31/16 at 08:24; Status DC Piperacillin Sod/ Tazobactam Sod 100 ml @ 200 mls/hr ONCE STAT IV Last administered on 03/31/16 08:25; Start 03/31/16 at 07:25; Stop 03/31/16 at 07:54; Status DC Sodium Chloride 1,000 ml @ 1,000 mls/hr Q1H ONCE IV Last administered on 07:33; Start 03/31/16 at 07:25; Stop 03/31/16 at 08:24; Status DC Sodium Chloride 1,000 ml @ 1,000 mls/hr Q1H ONCE IV Last administered on 07:25; Start 03/31/16 at 07:25; Stop 03/31/16 at 08:24; Status DC Sodium Chloride (NS 1000 ml Inj) 400 ml @ 1,000 mls/hr Q24M ONCE IV Last administered on 03/31/16 07:25; Start 03/31/16 at 07:25; Stop 03/31/16 at 07:48; Status DC Methylprednisolone Sodium Succinate (SoluMEDROL INJ) 125 mg ONCE ONCE IV PUSH Last administered on 03/31/16 07:37; Start 03/31/16 at 07:30; Stop 03/31/16 at 07: 31; Status DC Aspirin 325 mg 325 mg ONCE ONCE PO Last administered on 03/31/16 12:05; Start 03/31/16 at 10:15; Stop 03/31/16 at 10:16; Status DC Norepinephrine Bitartrate (Levophed-Dextrose Drip) 250 ml @ 0 mls/hr TITRATE IV Last administered on 03/31/16 11:05; Start 03/31/16 at 10:30; Stop 04/01/16 at 07:50; Status DC Norepinephrine Bitartrate (Levophed Inj) 4 mg STK-MED ONCE .ROUTE ; Start at 10:28; Stop 03/31/16 at 10:29; Status DC Hydrocortisone Sodium Succinate 50 mg 50 mg Q6HR IV PUSH Last administered on 06:44; Start 03/31/16 at 14:00; Stop 04/01/16 at 07:50; Status DC Pharmacy Profile Note 0 ml @ 0 mls/hr UNSCH OTHER ; Start 03/31/16 at 12:30 Piperacillin Sod/ Tazobactam Sod (Zosyn 2.25 Gm Premix) 50 ml @ 100 mls/hr Q8H IV Last administered on 04/02/16 08:58; Start 03/31/16 at 16:00 Dextrose (D50w (Vial) Inj) 25 ml UNSCH PRN IV PUSH HYPOGLYCEMIA-SEE COMMENTS; Start 03/31/16 at 12:30 Insulin Human Regular (NovoLIN R SUPPLEMENTAL SCALE) 1 Q6HR SQ Last administered on 04/01/16 17:16; Start 03/31/16 at 18:00 IV Flush (NS Flush) 2 ml UNSCH PRN IV FLUSH FLUSH AFTER USING IV ACCESS; Start 03/31/16 at 12:30 IV Flush (NS Flush) 2 ml BID IV FLUSH Last administered on 04/02/16 08:59; Start 03/31/16 at 21:00 Acetaminophen (Tylenol) 650 mg Q6H PRN PO PAIN 1-10 AND/OR FEVER >101F; Start 03/31/16 at 12:30; Status UNV Famotidine (Pepcid) 10 mg Q12HR PO Last administered on 04/02/16 08:58; Start 03/31/16 at 21:00 Ondansetron HCl (Zofran Inj) 4 mg Q6H PRN IV NAUSEA OR VOMITING; Start 03/31/16 at 12:30 Albuterol/ Ipratropium (Duoneb Neb) 1 ampule Q2HR NEB PRN INH WHEEZING; Start 03/31/16 at 12:30 Heparin Sodium (Porcine) (Heparin Inj) 5,000 units Q8H SQ Last administered on 04/02/16 06:27; Start 03/31/16 at 14:00 Miscellaneous Information 1 Q361D XX ; Start 03/31/16 at 12:30 Chlorhexidine Gluconate (Chlorhexidine 2% Cloth) 3 pack Taper DAILY@04 TOP ; Start 04/01/16 at 04:00; Stop 03/28/17 at 03:59 Chlorhexidine Gluconate 3 pack 3 pack UNSCH PRN TOP HYGIENIC CARE; Start at 12:30 Sodium Chloride (NS 1000 ml Inj) 1,000 ml @ 100 mls/hr Q10H IV Last administered on 04/02/16 08:59; Start 03/31/16 at 17:00 Hydrocortisone Sodium Succinate (SoluCORTEF INJ) 50 mg Q8HR IV PUSH Last administered on 04/02/16 06:27; Start 04/01/16 at 14:00 Aspirin (Aspirin Chew) 81 mg DAILY PO Last administered on 04/02/16 08:58; Start 04/01/16 at 09:00 Budesonide/ Formoterol Fumarate (Symbicort 160-4.5 Inh) 2 puff Q12HR INH Last administered on 04/02/16 08:58; Start 04/01/16 at 09:00 Clopidogrel Bisulfate (Plavix) 75 mg DAILY PO Last administered on 04/02/16 08: 58; Start 04/01/16 at 09:00 Levothyroxine Sodium (Synthroid) 200 mcg DAILY@0600 PO Last administered on 04/02 06:27; Start 04/01/16 at 09:00 Aspirin 81 mg 81 mg STK-MED ONCE .ROUTE Last administered on 04/01/16 08:26; Start 04/01/16 at 08:26; Stop 04/01/16 at 08:43; Status DC Vancomycin HCl/ Sodium Chloride (Vancomycin Inj/ NS 250 ml Inj) 250 ml @ 250 mls/hr ONCE ONCE IV Last administered on 04/01/16 09:38; Start 04/01/16 at 10: 00; Stop 04/01/16 at 10:59; Status DC A/P Assessment and Plan A/P Acute adrenal insufficiency taper down IV steroids- Acute kidney injury / Severe Dehydration due to vomiting improving- continue IV fluid and continue to monitor renal function closely leukocytosis- likely stress-induced- afebrile- improving- blood cultures negative- will stop antibiotic hematuria?- check CPK- hold plavix- will consider urology evaluation if persists - diarrhea- check the stool for c-diff CAD- s/p CABG; hold plavix as noted above COPD with no exacerbation; resume home meds DVT prophylaxis with SCD's- hold subq heparin due to hematuria Discharge Planning not ready for discharge yet. Neftali Menchaca MD Apr 02, 2016 11:52
[2016-04-02 12:19] LABS: BICARBONATE 19.6 MEQ/L (21.0-32.0)
[2016-04-02 13:20] LABS: C. DIFF EPI 027 PRESUMPTIVE NEGATIVE (NEGATIVE); C. DIFF TOXIN PCR NEGATIVE (NEGATIVE)
[2016-04-03] VITALS (21 sets, daily range): BP systolic 117–151; BP diastolic 71–93; PULSE 63–84; RESP 16–18; TEMP 97.7–98.6; O2SAT 94–98
[2016-04-03] MEDS: CHLORHEXIDINE GLUCONATE 2 % 1 PACK (2 CLOTHS) TOP SCH (04:00)
[2016-04-03 05:27] LABS: HEMATOCRIT 33.2 % (35.0-46.0); MEAN CELL VOLUME 88.8 FL (80.0-100.0); MEAN CORPUSCULAR HEMOGLOBIN 29.7 PG (27.0-34.0); MEAN CORPUSCULAR HGB CONC 33.5 % (32.0-36.0); PLATELET COUNT 220 TH/MM3 (150-450); RED BLOOD COUNT 3.74 MIL/MM3 (4.00-5.30); REVIEW FLAG FINAL; WHITE BLOOD COUNT 10.1 TH/MM3 (4.0-11.0)
[2016-04-03 05:42] LABS: BICARBONATE 19.9 MEQ/L (21.0-32.0); POTASSIUM 3.6 MEQ/L (3.5-5.1)
[2016-04-03] MEDS: LEVOTHYROXINE SODIUM 200 MCG TAB PO SCH (05:48)
[2016-04-03] MEDS: INSULIN NovoLIN REGULAR SUPPLEMENTAL SCALE SQ SCH ×2 (06:00→11:27)
[2016-04-03] MEDS: HYDROCORTISONE SOD SUCCINATE 100 MG VIAL IV PUSH SCH (08:56)
[2016-04-03] MEDS: FAMOTIDINE 20 MG TAB PO SCH (08:56)
[2016-04-03] MEDS: ASPIRIN 81 MG CHEW TAB PO SCH (08:56)
[2016-04-03] MEDS: SODIUM CHLOR 0.9% 1000 ML INJ 1,000 ML IV SCH ×2 (09:03→16:11)
[2016-04-03] MEDS: SODIUM CHLORIDE 0.9% FLUSH 5 ML FLUSH IV FLUSH SCH (09:05)
[2016-04-03] MEDS: BUDESONIDE-FORMOTEROL 160/4.5 MCG INHALER INH SCH (09:05)
--- NOTE | 2016-04-03 11:23 | HHI.PR ---
Subjective Remarks in no distress. still with hematuria. d/w the RN and reportedly had diarrhea. Objective Vitals Vital Signs Date Time Temp Pulse Resp B/P Pulse Ox O2 Delivery O2 Flow Rate FiO2 04/03/16 10:00 66 04/03/16 09:00 75 04/03/16 08:03 98 21 04/03/16 08:00 65 04/03/16 07:00 98.4 65 18 127/77 98 04/03/16 07:00 75 04/03/16 06:00 84 04/03/16 05:00 80 04/03/16 04:15 98.6 70 18 123/71 95 04/03/16 04:00 68 04/03/16 03:00 69 04/03/16 02:00 67 04/03/16 01:00 67 04/03/16 00:15 98.1 64 16 117/75 97 04/03/16 00:00 64 04/02/16 23:00 66 04/02/16 22:00 71 04/02/16 21:00 67 04/02/16 20:50 98.3 66 16 127/84 92 04/02/16 20:00 69 04/02/16 19:00 84 04/02/16 18:00 73 04/02/16 17:00 70 04/02/16 16:00 75 04/02/16 15:00 97.8 78 18 109/73 99 04/02/16 15:00 88 04/02/16 14:00 79 04/02/16 13:00 78 04/02/16 12:00 84 I/O 04/02/16 04/02/16 04/02/16 04/03/16 04/03/16 04/03/16 07:00 15:00 23:00 07:00 15:00 23:00 Intake Total 1580 ml 2002 ml 420 ml Output Total 750 ml 550 ml 675 ml Balance 830 ml 1452 ml -255 ml Intake Oral 480 ml 960 ml 420 ml IV Total 1100 ml 1042 ml Output Urine Total 750 ml 550 ml 675 ml # Bowel Movements 2 1 Result Diagram: 04/03/16 0500 04/03/16 0500 Imaging Last Impressions Abdomen/Pelvis CT 03/31/16 0649 Signed Impressions: Service Date/Time: Thursday, March 31, 2016 06:57 - CONCLUSION: No evidence of renal stone, ureteral stone, or hydronephrosis. Nixon Ladd MD Chest X-Ray 03/31/16 0000 Signed Impressions: Service Date/Time: Thursday, March 31, 2016 10:59 - CONCLUSION: Line in good position without pneumothorax. Evidence for previous valve replacement. Amos Grande MD FACR Objective Remarks GENERAL: This is a well-nourished, well-developed patient, in no apparent distress. CARDIOVASCULAR: Regular rate and regular rhythm without murmurs, gallops, or rubs. RESPIRATORY: Clear to auscultation. Breath sounds equal bilaterally. No wheezes , rales, or rhonchi. GASTROINTESTINAL: Abdomen soft, non-tender, nondistended. Normal, active bowel sounds MUSCULOSKELETAL: Extremities with mild bilateral pedal edema. NEURO: Alert & Oriented x4 to person, place, time, situation. Moves all ext x4 Procedures none Medications and IVs Current Medications Ondansetron HCl 4 mg 4 mg ONCE ONCE IVP Last administered on 03/31/16 07:17; Start 03/31/16 at 07:00; Stop 03/31/16 at 07:01; Status DC Sodium Chloride (NS 1000 ml Inj) 1,000 ml @ 1,000 mls/hr Q1H IV Last administered on 03/31/16 07:17; Start 03/31/16 at 06:49; Stop 03/31/16 at 07:48; Status DC IV Flush 2 ml 2 ml UNSCH PRN IVF FLUSH AFTER USING IV ACCESS; Start 03/31/16 at 07:00; Stop 03/31/16 at 13:33; Status DC Vancomycin HCl 1000 mg/Sodium Chloride 250 ml @ 250 mls/hr ONCE STAT IV Last administered on 03/31/16 08:25; Start 03/31/16 at 07:25; Stop 03/31/16 at 08:24; Status DC Piperacillin Sod/ Tazobactam Sod 100 ml @ 200 mls/hr ONCE STAT IV Last administered on 03/31/16 08:25; Start 03/31/16 at 07:25; Stop 03/31/16 at 07:54; Status DC Sodium Chloride 1,000 ml @ 1,000 mls/hr Q1H ONCE IV Last administered on 07:33; Start 03/31/16 at 07:25; Stop 03/31/16 at 08:24; Status DC Sodium Chloride 1,000 ml @ 1,000 mls/hr Q1H ONCE IV Last administered on 07:25; Start 03/31/16 at 07:25; Stop 03/31/16 at 08:24; Status DC Sodium Chloride (NS 1000 ml Inj) 400 ml @ 1,000 mls/hr Q24M ONCE IV Last administered on 03/31/16 07:25; Start 03/31/16 at 07:25; Stop 03/31/16 at 07:48; Status DC Methylprednisolone Sodium Succinate (SoluMEDROL INJ) 125 mg ONCE ONCE IV PUSH Last administered on 03/31/16 07:37; Start 03/31/16 at 07:30; Stop 03/31/16 at 07: 31; Status DC Aspirin 325 mg 325 mg ONCE ONCE PO Last administered on 03/31/16 12:05; Start 03/31/16 at 10:15; Stop 03/31/16 at 10:16; Status DC Norepinephrine Bitartrate (Levophed-Dextrose Drip) 250 ml @ 0 mls/hr TITRATE IV Last administered on 03/31/16 11:05; Start 03/31/16 at 10:30; Stop 04/01/16 at 07:50; Status DC Norepinephrine Bitartrate (Levophed Inj) 4 mg STK-MED ONCE .ROUTE ; Start at 10:28; Stop 03/31/16 at 10:29; Status DC Hydrocortisone Sodium Succinate 50 mg 50 mg Q6HR IV PUSH Last administered on 06:44; Start 03/31/16 at 14:00; Stop 04/01/16 at 07:50; Status DC Pharmacy Profile Note 0 ml @ 0 mls/hr UNSCH OTHER ; Start 03/31/16 at 12:30; Stop 04/02/16 at 11:54; Status DC Piperacillin Sod/ Tazobactam Sod (Zosyn 2.25 Gm Premix) 50 ml @ 100 mls/hr Q8H IV Last administered on 04/02/16 08:58; Start 03/31/16 at 16:00; Stop 04/02/16 at 11:54; Status DC Dextrose (D50w (Vial) Inj) 25 ml UNSCH PRN IV PUSH HYPOGLYCEMIA-SEE COMMENTS; Start 03/31/16 at 12:30 Insulin Human Regular (NovoLIN R SUPPLEMENTAL SCALE) 1 Q6HR SQ Last administered on 04/02/16 23:19; Start 03/31/16 at 18:00 IV Flush (NS Flush) 2 ml UNSCH PRN IV FLUSH FLUSH AFTER USING IV ACCESS; Start 03/31/16 at 12:30 IV Flush (NS Flush) 2 ml BID IV FLUSH Last administered on 04/03/16 09:05; Start 03/31/16 at 21:00 Acetaminophen (Tylenol) 650 mg Q6H PRN PO PAIN 1-10 AND/OR FEVER >101F; Start 03/31/16 at 12:30; Status UNV Famotidine (Pepcid) 10 mg Q12HR PO Last administered on 04/03/16 08:56; Start 03/31/16 at 21:00 Ondansetron HCl (Zofran Inj) 4 mg Q6H PRN IV NAUSEA OR VOMITING; Start 03/31/16 at 12:30 Albuterol/ Ipratropium (Duoneb Neb) 1 ampule Q2HR NEB PRN INH WHEEZING; Start 03/31/16 at 12:30 Heparin Sodium (Porcine) (Heparin Inj) 5,000 units Q8H SQ Last administered on 04/02/16 06:27; Start 03/31/16 at 14:00; Status Hold Miscellaneous Information 1 Q361D XX ; Start 03/31/16 at 12:30 Chlorhexidine Gluconate (Chlorhexidine 2% Cloth) 3 pack Taper DAILY@04 TOP ; Start 04/01/16 at 04:00; Stop 03/28/17 at 03:59 Chlorhexidine Gluconate 3 pack 3 pack UNSCH PRN TOP HYGIENIC CARE; Start at 12:30 Sodium Chloride (NS 1000 ml Inj) 1,000 ml @ 100 mls/hr Q10H IV Last administered on 04/03/16 09:03; Start 03/31/16 at 17:00 Hydrocortisone Sodium Succinate (SoluCORTEF INJ) 50 mg Q8HR IV PUSH Last administered on 04/02/16 06:27; Start 04/01/16 at 14:00; Stop 04/02/16 at 11:54; Status DC Aspirin (Aspirin Chew) 81 mg DAILY PO Last administered on 04/03/16 08:56; Start 04/01/16 at 09:00 Budesonide/ Formoterol Fumarate (Symbicort 160-4.5 Inh) 2 puff Q12HR INH Last administered on 04/03/16 09:05; Start 04/01/16 at 09:00 Clopidogrel Bisulfate (Plavix) 75 mg DAILY PO Last administered on 04/02/16 08: 58; Start 04/01/16 at 09:00; Status Hold Levothyroxine Sodium (Synthroid) 200 mcg DAILY@0600 PO Last administered on 05:48; Start 04/01/16 at 09:00 Aspirin 81 mg 81 mg STK-MED ONCE .ROUTE Last administered on 04/01/16 08:26; Start 04/01/16 at 08:26; Stop 04/01/16 at 08:43; Status DC Vancomycin HCl/ Sodium Chloride (Vancomycin Inj/ NS 250 ml Inj) 250 ml @ 250 mls/hr ONCE ONCE IV Last administered on 04/01/16 09:38; Start 04/01/16 at 10: 00; Stop 04/01/16 at 10:59; Status DC Hydrocortisone Sodium Succinate (SoluCORTEF INJ) 50 mg Q12HR IV PUSH Last administered on 04/03/16 08:56; Start 04/02/16 at 21:00 A/P Assessment and Plan A/P Acute adrenal insufficiency taper down IV steroids- Acute kidney injury / Severe Dehydration due to vomiting improving- continue IV fluid and continue to monitor renal function closely leukocytosis- likely stress-induced- afebrile- improving- blood cultures negative- hematuria- - hold plavix- will consult urology. diarrhea- stool negative for c-diff- imodium as needed. CAD- s/p CABG; hold plavix as noted above COPD with no exacerbation; resume home meds DVT prophylaxis with SCD's- hold subq heparin due to hematuria Discharge Planning pending urology evaluation. Neftali Menchaca MD Apr 03, 2016 11:23
[2016-04-03] MEDS ORDERED: LOPERAMIDE HCL 2 MG CAP PO PRN (11:30)
--- NOTE | 2016-04-03 16:08 | HHI.DCPOC ---
Discharge Care Plan Diagnosis: (1) Adrenal crisis Additional Problems low blood pressure. Goals to Promote Your Health * To prevent worsening of your condition and complications * To maintain your health at the optimal level Directions to Meet Your Goals Take your medications as prescribed Follow your dietary instruction Follow activity as directed Keep your appointments as scheduled Take your immunizations and boosters as scheduled If your symptoms worsen call your PCP, if no PCP go to Urgent Care Center or Emergency Room Smoking is Dangerous to Your Health. Avoid second hand smoke Call the 24-hour hour crisis hotline for domestic abuse at Neftali Menchaca MD Apr 03, 2016 16:08
--- NOTE | 2016-04-03 16:10 | HHI.DS ---
Discharge Summary Admission Date Mar 31, 2016 at 11:10 Discharge Date: Apr 03, 2016 Admitting Diagnosis hypovolemic shock, addisonian crisis, rule out sepsis (1) Addisonian crisis ICD Code: E27.2 Diagnosis: Principal Procedures none Brief History - From Admission This is a 60yF with h/o Monmouth's disease who presents with about 3 days of severe nausea and vomiting. She states she ran out of her hydrocortisone about 3 or 4 days ago, and since then has had progressive nausea and vomiting. she initially presented to the emergency department with significant tachycardia and hypotension. She received 4L NS boluses which she was initially fluid responsive, followed by bedside echocardiogram which demonstrated that she had a plump IVC. At this point she was started on norepinephrine for end-organ perfusion. She was given a dose of steroids in the emergency department since she has not had her own medication in at least 3 days. Her wbc was elevated at 18K so she was started on broad spectrum antibiotics and blood cultures were drawn. Her lactate is normal. Her creatinine is elevated at 3.17. Critical care medicine has been consulted to evaluate her hypotension. I evaluated the patient and she confirmed the above history of nausea and vomiting. denies hematemesis, denies fever, chills, cough, shortness of breath, chest pain. does endorse mild crampy abdominal pain, and only a half-day history of diarrhea. no dark tarry stools. CBC/BMP: 04/03/16 0500 04/03/16 0500 Significant Findings Laboratory Tests Test 04/01/16 04/01/16 04/02/16 04/03/16 03:36 08:15 10:50 05:00 White Blood Count 18.3 TH/MM3 11.3 TH/MM3 (4.0-11.0) (4.0-11.0) Sodium Level 132 MEQ/L (136-145) Potassium Level 5.4 MEQ/L (3.5-5.1) Carbon Dioxide Level 15.4 MEQ/L 19.6 MEQ/L 19.9 MEQ/L (21.0-32.0) (21.0-32.0) (21.0-32.0) Anion Gap 17 MEQ/L (5-15) Blood Urea Nitrogen 38 MG/DL (7-18) 30 MG/DL (7-18) 19 MG/DL (7-18) Creatinine 2.77 MG/DL 1.59 MG/DL 1.18 MG/DL (0.50-1.00) (0.50-1.00) (0.50-1.00) Estimat Glomerular Filtration 17 ML/MIN (>89) 33 ML/MIN (>89) 46 ML/MIN (>89) Rate Random Glucose 145 MG/DL 162 MG/DL 153 MG/DL (74-106) (74-106) (74-106) Calcium Level 8.1 MG/DL 8.1 MG/DL 7.9 MG/DL (8.5-10.1) (8.5-10.1) (8.5-10.1) Urine Turbidity HAZY (CLEAR) Urine Ketones 10 mg/dL (NEG) Urine Occult Blood LARGE (NEG) Urine Leukocyte Esterase SMALL (NEG) Urine Uric Acid Crystals FEW /hpf (NONE) Urine Bacteria RARE /hpf (NONE) Urine Mucus FEW /lpf (OCC) Red Blood Count 3.92 MIL/MM3 3.74 MIL/MM3 (4.00-5.30) (4.00-5.30) Hemoglobin 11.5 GM/DL 11.1 GM/DL (11.6-15.3) (11.6-15.3) Hematocrit 34.3 % 33.2 % (35.0-46.0) (35.0-46.0) Chloride Level 109 MEQ/L 113 MEQ/L (98-107) (98-107) PE at Discharge GENERAL: This is a well-nourished, well-developed patient, in no apparent distress. CARDIOVASCULAR: Regular rate and regular rhythm without murmurs, gallops, or rubs. RESPIRATORY: Clear to auscultation. Breath sounds equal bilaterally. No wheezes , rales, or rhonchi. GASTROINTESTINAL: Abdomen soft, non-tender, nondistended. Normal, active bowel sounds MUSCULOSKELETAL: Extremities with mild bilateral pedal edema. NEURO: Alert & Oriented x4 to person, place, time, situation. Moves all ext x4 Hospital Course Acute adrenal insufficiency taper down IV steroids- Acute kidney injury / Severe Dehydration due to vomiting improving- continue IV fluid and continue to monitor renal function closely leukocytosis- likely stress-induced- afebrile- improving- blood cultures negative- hematuria- - f/u with urology as outpatient diarrhea- stool negative for c-diff- imodium as needed. CAD- s/p CABG; resume home meds COPD with no exacerbation; resume home meds Pt Condition on Discharge: Good Discharge Disposition: Discharge Home Discharge Time: <= 30 minutes Discharge Instructions DIET: Follow Instructions for: Heart Healthy Diet Activities you can perform: Regular-No Restrictions Follow up Referrals: PCP Follow-up Urology Changed Medications: Metoprolol Tartrate (Metoprolol Tartrate) 25 Mg Tab 25 MG PO DAILY hypertension Days 30 Ref 0 TAB (Changed from: BID; Removed Quantity) Continued Medications: Albuterol 18 GM Inh (Ventolin Hfa 18 GM Inh) 90 Mcg/Act Aer 1 PUFF INH DAILY PRN SHORTNESS OF BREATH #1 Ref 3 INHALER Aspirin (Aspir-81) 81 Mg Tab 81 MG PO DAILY heart #90 Ref 1 TAB Atorvastatin (Atorvastatin) 40 Mg Tab 40 MG PO HS Cholesterol Management #30 Ref 4 TAB Budesonide-Formoterol Inh (Symbicort Inh) 160-4.5 Mcg/Act Aero 2 PUFF INH Q12HR #1 Ref 0 INHALER Clopidogrel (Plavix) 75 Mg Tab 75 MG PO DAILY Blood Clot Prevention #30 Ref 6 TAB Fluticasone-Salmeterol Inh (Advair Diskus Inh) 100-50 Mcg/Blist Aer 1 PUFF INH DAILY Rinse mouth after use. Asthma Management #1 Ref 0 INHALER Hydrocortisone (Hydrocortisone) 10 Mg Tab 10 MG PO TID Take with food to decrease GI upset #60 Ref 0 TAB Hydroxyzine Pamoate (Hydroxyzine Pamoate) 50 Mg Cap 50 MG PO TID PRN ANXIETY #90 Ref 3 CAP Levothyroxine (Levothyroxine) 200 Mcg Tab 200 MCG PO DAILY Thyroid #30 Ref 0 TAB Nitroglycerin SL (Nitrostat SL) 0.4 Mg Subl 0.4 MG SL DIRECTED 1 tablet under the tongue as needed for chest pain. Repeat every 5 minutes for a total of 3 DOSES or call 911 if NO relief. PRN CHEST PAIN #100 Ref 0 TAB.SL Ondansetron (Zofran) 4 Mg Tab 4 MG PO Q12HR PRN NAUSEA OR VOMITING Ref 0 TAB Pantoprazole (Pantoprazole) 40 Mg Tab 40 MG PO DAILY Reflux #30 Ref 5 TAB Discontinued Medications: Furosemide (Furosemide) 20 Mg Tab 20 MG PO DAILY #30 Ref 0 TAB Potassium Chloride ER (Potassium Chloride ER) 20 Meq Tab 20 MEQ PO BID Electrolyte Replacement #60 Ref 3 TAB Neftali Menchaca MD Apr 03, 2016 16:10
[2016-04-03] MEDS ORDERED: METO25TA3 PO (16:13)
--- NOTE | 2016-04-03 17:03 | MB ---
cc: LAZARA UMANA MD DATE OF CONSULTATION: 04/03/2016 REASON FOR CONSULTATION: Gross hematuria. HISTORY OF PRESENT ILLNESS: The patient is a 60-year-old female with history of Jorge's disease who was admitted on March 31, 2016 with three day history of severe nausea and vomiting with lower abdominal pain and diarrhea consistent with addisonian crisis she had ran out for hydrocortisone about four days prior to presenting the hospital. On observation she was found to have significant tachycardia and hypotensive. She was given stress dose steroids and aggressively resuscitated with IV fluids. During that time she was found to have gross hematuria as well. The catheter was placed due to her hypovolemic state. For the past three to four days she has had intermittent gross hematuria that is currently resolved at this time. Besides the lower abdominal pain. She denied any previous symptoms including dysuria, urgency or frequency. She does have a history of smoking in the past. She denies history of kidney stones or any genitourinary malignancies. She currently denies fevers, chills or flank pain at this time. PAST MEDICAL HISTORY 1. Significant for Jorge's disease. 2. Depression 3. Asthma 4. Arthritis 5. Hypertension 6. Congestive heart failure 7. Hyperlipidemia 8. Coronary artery disease 9. gastroesophageal reflux disease 10. history of myocardial infarction. PAST SURGICAL HISTORY: 1. Status post coronary artery bypass graft times four. 2. Mitral valve replacement. 3. Hysterectomy. 4. Tonsillectomy. 5. delivery ALLERGIES TYLENOL HOME MEDICATIONS include 1. Plavix 75 mg p.o. daily. 2. Aspirin 81 mg p.o. daily. 3. Metoprolol 25 mls p.o. twice a day. 4. Symbicort 5. Advair discus. 6. Furosemide 20 mg p.o. daily. 7. Synthroid 200 micro grams p.o. daily. 8. Zofran 4 mg p.o. q.12 h p.r.n. nausea. 9. Hydrocortisone 10 mg p.o. t.i.d. 10. Hydroxyzine pamoate 15 mg p.o. t.i.d. p.r.n. 11. Pantoprazole 20 mg p.o. daily. 12. Pravastatin 40 mg p.o. q.h.s. 13. Potassium chloride extended release 20 mv p.o. b.i.d. 14. Ventolin inhaler 18 grams 1 puff daily p.r.n. shortness of breath. FAMILY HISTORY Negative for nephroureterectomy. Urolithiasis. SOCIAL HISTORY History of tobacco use well half-pack per day but denies alcohol or illicit drug use. REVIEW OF SYSTEMS See HPI otherwise all systems reviewed otherwise negative. PHYSICAL EXAMINATION VITAL SIGNS: Her temperature is 97.9, Pulse 65, blood pressure 125/76 and sating 98% on room air. IN GENERAL: She is alert and oriented x3. No acute apparent distress. Pleasant, cooperative lady appears her stated age. HEAD, EYES, EARS, NOSE, AND THROAT: Head is normocephalic, atraumatic. Ears, nose Eyes: No scleral icterus. External muscles intact. External auditory hearing normal. NECK: Supple. Trachea is midline. No JVD. LUNGS: Clear to auscultation bilaterally, no wheezes, rales or rhonchi. HEART: Regular rhythm. No murmurs, gallops or rubs. ABDOMEN: Soft, nontender, nondistended. Positive bowel sounds. BACK: No costovertebral angle tenderness bilaterally. PELVIC: No indicated at this time. GENITOURINARY: Driscoll catheter draining concentrated yellow urine. EXTREMITIES: Nontender, no clubbing, cyanosis, edema. PSYCHIATRIC: Normal affect. SKIN: No ulcers or rashes. LABORATORY DATA White count of 10.1, hemoglobin 11.1, hematocrit 33.2, platelet count 220, sodium 141, potassium 3.6, chloride 138. Bicarbonate 19.9. BUN 19, creatinine 1.18 down from 2.77, glucose 153. Urine Shows large occult blood, small leukocyte esterase with a pH of 5.01 specific gravity 1.016. Her INR was 1.3. IMAGING STUDIES CT of the abdomen and pelvis without contrast, images reviewed. We agree with the Radiologist's report. No evidence of any hydronephrosis or stones in her kidneys. ASSESSMENT/PLAN The patient is a 60 year-old female with history of tobacco use who was admitted for addisonian crisis presents with a gross hematuria which currently resolved. 1. CT of abdomen and pelvis without contrast was negative for any stones or hydronephrosis. However, her bladder and ureters still need to be evaluated which could be on outpatient basis in the form of a cystoscopy and bilateral retrograde pyelogram. 2. From urology standpoint it is okay for her to DC home. She will follow up as an outpatient will defer Driscoll catheter management to primary, but from a urology standpoint can be removed. Please call with any questions MD EVELYN Fuentes/singh /2:54 PM /4:43 PM
[2016-04-11] MEDS ORDERED: POTA-163 PO (11:23)
[2016-04-11] MEDS ORDERED: FURO1TAB62 PO (11:27)
[2016-04-11] MEDS ORDERED: ZOFR4TAB PO (11:27)
[2016-04-11] MEDS ORDERED: HYDR10TA65 PO (11:27)
[2016-04-11] MEDS ORDERED: METO25TA3 PO (11:27)
[2016-04-11] MEDS ORDERED: ASPI1TAB69 PO (12:45)
[2016-04-12] MEDS ORDERED: CIPR-9 PO (10:02)
[2016-05-23] MEDS ORDERED: AMOX500T PO (10:06)
[2016-05-23] MEDS ORDERED: HYDR10TA65 PO (10:07)
[2016-05-23] MEDS ORDERED: METO25TA3 PO (10:10)
[2016-07-30] MEDS ORDERED: OXYB5TAB10 PO (10:31)
== END 2016-04-03 18:05 | disposition home or self-care (01) | DRG 644 ==
LOC: NEPE 19:32 → NEDA 03-31 11:10 → HCIS 03-31 22:15
PROVIDERS: ADMIT Internal Medicine; ATTEND Internal Medicine
PROC: 02HV33Z Insertion of Infusion Device into Superior Vena Cava, Percutaneous Approach (ICD-10-PCS; principal; 2016-03-31)
PROC: 0T9B70Z Drainage of Bladder with Drainage Device, Via Natural or Artificial Opening (ICD-10-PCS; 2016-03-31)
DX: E27.2 Addisonian crisis (principal); N17.9 Acute kidney failure, unspecified; I50.9 Heart failure, unspecified; I25.10 Atherosclerotic heart disease of native coronary artery without angina pectoris; J44.9 Chronic obstructive pulmonary disease, unspecified; I10 Essential (primary) hypertension; I25.2 Old myocardial infarction; J45.909 Unspecified asthma, uncomplicated; K21.9 Gastro-esophageal reflux disease without esophagitis; M19.90 Unspecified osteoarthritis, unspecified site; F41.9 Anxiety disorder, unspecified; F32.9 Major depressive disorder, single episode, unspecified; E78.00 Pure hypercholesterolemia, unspecified; R31.0 Gross hematuria; Z87.891 Personal history of nicotine dependence; E78.5 Hyperlipidemia, unspecified; E86.0 Dehydration; Z79.02 Long term (current) use of antithrombotics/antiplatelets; Z79.82 Long term (current) use of aspirin; Z95.2 Presence of prosthetic heart valve; Z95.1 Presence of aortocoronary bypass graft
CPT/HCPCS: 36556; 51702; 71010; 74176; 76937; 80048; 80053; 80202; 81001; 82550; 82948; 83605; 83690; 84484; 85025; 85027; 85610; 85730; 87040; 87493; 87641; 93005; 94150; 94640; 94667; 94668; 96361; 96365; 96366; 96368; 96374; 96375; J1644; J1720; J2405; J2543; J2930; J3370; J7030; J7050

== ENCOUNTER → 2016-04-11 | Outpatient (CLI) | payer OTHER ==
[~2016-04-11] MED LIST changes: +AMOX500T PO; +ASPI1TAB69 PO; +CIPR-9 PO; +FURO1TAB62 PO; -FURO20TA PO; +OXYB5TAB10 PO
[2016-04-11 13:10] LABS: BACTERIA, URINE RARE /hpf; BLOOD, URINE SMALL (NEG); GLUCOSE,URINE TRACE mg/dL (NEG); KETONE, URINE NEG (NEG); MUCUS URINE FEW /lpf (OCC); NITRITE,URINE NEG (NEG); SQUAMOUS EPITHELIAL CELL URINE 1 /hpf (0-5); URINE COLOR YELLOW (YELLW/STRAW)
== END ==
LOC: CLAB 12:30
PROVIDERS: ATTEND Family Medicine
DX: R31.9 Hematuria, unspecified (principal)
CPT/HCPCS: 81001

== ENCOUNTER → 2016-04-25 | Outpatient (CLI) | payer OTHER ==
[~2016-04-25] MED LIST changes: -ASPI81TA82 PO
[2016-04-25 12:01] LABS: BACTERIA, URINE RARE /hpf; BLOOD, URINE NEG (NEG); GLUCOSE,URINE NEG (NEG); HYALINE CAST, URINE 1 /lpf (RARE); KETONE, URINE NEG (NEG); NITRITE,URINE NEG (NEG); SQUAMOUS EPITHELIAL CELL URINE 4 /hpf (0-5); TRANSITIONAL EPI CELLS, URINE <1 /hpf; URINE COLOR YELLOW (YELLW/STRAW)
[2016-04-25 12:02] LABS: COMMENT (UR) CULT NOT INDICATED; CULTURE IF INDICATED CULT NOT INDICATED
== END ==
LOC: CLAB 11:42
PROVIDERS: ATTEND Family Medicine
DX: R31.9 Hematuria, unspecified (principal)
CPT/HCPCS: 81001

== ENCOUNTER → 2016-05-23 | Outpatient (CLI) | payer OTHER ==
[~2016-05-23] MED LIST changes: -CIPR-9 PO
--- NOTE | 2016-05-23 11:54 | EKG ---
Date Performed: 05/23/2016 Time Performed: 10:38:06 PTAGE: 60 years EKG: Sinus rhythm . Septal T wave changes Normal ECG PREVIOUS TRACING : 03/31/2016 07.27 DOCTOR: Grupo Wright Interpretating Date/Time 05/23/2016 11:53:11
== END ==
LOC: HCAV 10:31
PROVIDERS: ATTEND Family Medicine
DX: I49.9 Cardiac arrhythmia, unspecified (principal)
CPT/HCPCS: 93005

== ENCOUNTER → 2016-06-21 | Outpatient (CLI) | payer OTHER ==
[2016-06-21 14:47] LABS: BLOOD, URINE SMALL (NEG); COMMENT (UR) CULT NOT INDICATED; CULTURE IF INDICATED CULT NOT INDICATED; GLUCOSE,URINE NEG (NEG); KETONE, URINE NEG (NEG); MUCUS URINE FEW /lpf (OCC); NITRITE,URINE NEG (NEG); SQUAMOUS EPITHELIAL CELL URINE 2 /hpf (0-5); URINE COLOR YELLOW (YELLW/STRAW)
== END ==
LOC: CLAB 14:25
PROVIDERS: ATTEND Nurse Practitioner Family
DX: R31.9 Hematuria, unspecified (principal)
CPT/HCPCS: 81001

== ENCOUNTER → 2016-08-08 | Outpatient (CLI) | payer OTHER ==
[~2016-08-08] MED LIST changes: -AMOX500T PO
[2016-08-08 11:27] LABS: BICARBONATE 25.2 MEQ/L (21.0-32.0); POTASSIUM 4.2 MEQ/L (3.5-5.1)
== END ==
LOC: CLAB 10:46
PROVIDERS: ATTEND Urology
DX: R31.29 Other microscopic hematuria (principal)
CPT/HCPCS: 36415; 80048

== ENCOUNTER → 2016-08-14 | Outpatient (CLI) | payer OTHER ==
--- NOTE | 2016-08-14 13:35 | RADRPT ---
EXAM DATE/TIME: 08/14/2016 12:58 [facility] COMPARISON: CT ABDOMEN & PELVIS W/O CONTRAST, March 31, 2016, 6:57. INDICATIONS : Hematuria without pain. ORAL CONTRAST: No oral contrast ingested. RADIATION DOSE: 13.12 CTDIvol (mGy) MEDICAL HISTORY : None SURGICAL HISTORY : None. ENCOUNTER: Initial ACUITY: 2 months PAIN SCALE: 0/10 LOCATION: abdomen TECHNIQUE: Volumetric scanning of the abdomen and pelvis was performed. Using automated exposure control and ad justment of the mA and/or kV according to patient size, radiation dose was kept as low as reasonably achievable to obtain optimal diagnostic quality images. FINDINGS: LOWER LUNGS: The visualized lower lungs are clear. Patient is post median sternotomy and valve replacement. LIVER: Homogeneous density without lesion. There is no dilation of the biliary tree. No calcified gallston es. SPLEEN: Normal size without lesion. PANCREAS: Within normal limits. KIDNEYS: Normal in size and shape. There is no mass, stone, or hydronephrosis. ADRENAL GLANDS: Not well visualized, possibly atrophic. VASCULAR: There is no aortic aneurysm. There is severe atherosclerotic disease. BOWEL/MESENTERY: The stomach, small bowel, and colon demonstrate no acute abnormality. There is no free intraperitone al air or fluid. Appendix is not visualized. ABDOMINAL WALL: Within normal limits. RETROPERITONEUM: There is no lymphadenopathy. BLADDER: No wall thickening or mass. REPRODUCTIVE: There is a stable 11 mm simple-appearing cystic lesion in the left ovary. Right ovary is not clearly seen. Uterus demonstrates no abnormality. INGUINAL: There is no lymphadenopathy or hernia. MUSCULOSKELETAL: There are mild degenerative changes of the lumbar spine. CONCLUSION: 1. No abnormality is identified to explain the patient's hematuria on this noncontrast examination. N o renal stones are seen. 2. Stable 11 mm simple appearing left ovarian cystic lesion. The small size favors a benign process. Since the patient is postmenopausal consider 6 month followup ultrasound to confirm stability. Karlo Albarran MD on August 14, 2016 at 13:26 Board Certified Radiologist. This report was verified electronically.
== END ==
LOC: HRAD 11:56
PROVIDERS: ATTEND Urology
DX: R31.29 Other microscopic hematuria (principal)
CPT/HCPCS: 74176

== ENCOUNTER 2016-08-18 14:31 | Emergency (ER) | payer OTHER ==
[~2016-08-18] VITALS: Ht 160 cm; Wt 75.0 kg
[2016-08-18 14:31] VITALS: O2SAT 100
[~2016-08-18 14:31] MED LIST changes: +AMIODARONE HCL 150 MG/3 ML VIAL IV ONE; +CALCIUM CHLORIDE 10% SOLN 1 GRAM/10 ML SYR IV ONE; +DEXTROSE 50% IN WATER 50 ML SYRINGE IV ONE; +EPINEPHrine HCL (1:10,000) 1 MG/10 ML SYRINGE IV ONE; +SODIUM BICARBONATE 8.4% INJ 50 MEQ/50 ML SYR IV ONE
[2016-08-18] MEDS ORDERED: methylPREDNISolone SOD SUCC 125 MG/2 ML VIAL ONE (14:38)
[2016-08-18] MEDS ORDERED: methylPREDNISolone SOD SUCC 125 MG/2 ML VIAL IV PUSH ONE (14:45)
[2016-08-18] MEDS ORDERED: EPINEPHrine HCL (1:10,000) 1 MG/10 ML SYRINGE ONE (14:52)
--- NOTE | 2016-08-18 15:15 | PD ---
HPI Chief Complaint: Code Blue Time Seen by Provider: 15:08 Travel History International Travel<30 days: No Contact w/Intl Traveler<30days: No (unknown) Traveled to known affect area: No ( unknown unknown) History of Present Illness HPI This is a 60-year-old female with a history of Jorge's disease, coronary artery disease, CHF, who is brought in by private vehicle in cardiac arrest. Patient's stepdaughter states that [place] when she started complaining of getting hot and having shortness of breath. The stepdaughter reports that they pulled off the road under a tree to get some shade when she started complaining of dizziness and weakness. Daughter reports giving her Gatorade and shortly thereafter she noted her to vomited up and then go unconscious. She reports continuing in the car on the way to the hospital. She reports that it was at least 5 minutes or more before she arrived at the front door. When the patient arrived in the front door she was evaluated by the lining baster in the triage area and noted to be pulseless. CPR was started and she was rushed back to echo 50. Patient was initially in asystole. ACLS protocol was started. She was given a total of 6 epinephrine doses, one bicarbonate dose, 1 calcium chloride dose, one dose of 300 mg amiodarone , 1 amp of D50 and 125 mg of Solu-Medrol. During the cardiac arrest code, the patient went into V. tach without a pulse and was defibrillated into V. fib. She remained in V. fib until the end of the code when she ultimately went back into asystole. PFSH Past Medical History Hx Anticoagulant Therapy: Yes (PLAVIX) Arthritis: Yes Asthma: Yes Autoimmune Disease: Yes Blood Disorders: No Anxiety: Yes Depression: Yes Heart Rhythm Problems: Yes Cancer: No Cardiac Catheterization: Yes Cardiovascular Problems: Yes (HTN, CHF) High Cholesterol: Yes Chemotherapy: No Chest Pain: Yes Congestive Heart Failure: Yes COPD: Yes Cerebrovascular Accident: No Coronary Artery Disease: Yes Diabetes: No Diminished Hearing: No Endocrine: Yes (JORGE DISEASE) Gastrointestinal Disorders: No GERD: Yes Glaucoma: No Genitourinary: No Headaches: No Hepatitis: No Hiatal Hernia: No Hypertension: Yes Immune Disorder: No Kidney Stones: No Musculoskeletal: Yes Neurologic: No Psychiatric: Yes Reproductive: Yes Respiratory: Yes (ASTHMA, COPD) Immunizations Current: No Migraines: No Myocardial Infarction: Yes Radiation Therapy: No Renal Failure: No Seizures: No Sickle Cell Disease: No Sleep Apnea: No Thyroid Disease: Yes Ulcer: No Menopausal: Yes : 2 Para: 2 Miscarriage: 0 : 0 Ovarian Cysts: Yes Tubal Ligation: Yes Past Surgical History Abdominal Surgery: No AICD: No Appendectomy: No Arteriovenous Shunt: No Body Medical Devices: ADDISONS DISEASE, OVER ACTIVE RENAL GLAND Cardiac Surgery: Yes (MITRAL VALVE REPLACEMENT, CABG) Section: Yes Cholecystectomy: No Coronary Artery Bypass Graft: Yes (CABG X 4) Ear Surgery: No Endocrine Surgery: Yes Eye Surgery: No Genitourinary Surgery: No Gynecologic Surgery: Yes (TUBAL LIGATION 40 YEARS AGO) Hysterectomy: Yes Insulin Pump: No Joint Replacement: No Oral Surgery: Yes (TEETH EXTRACTIONS) Pacemaker: No Thoracic Surgery: No Tonsillectomy: Yes Other Surgery: Yes Social History Alcohol Use: No Tobacco Use: No Substance Use: No Allergies-Medications (Allergen,Severity, Reaction): Coded Allergies: Tylenol (Verified Allergy, Severe, AGGRIVATES LIVER?, 08/18/16) Reported Meds & Prescriptions Reported Meds & Active Scripts Active Ditropan (Oxybutynin Chloride) 5 Mg Tab 5 Mg PO Q12HR Metoprolol Tartrate 25 Mg Tab 25 Mg PO BID Hydrocortisone 10 Mg Tab 3 Tab PO BID Take with food to decrease GI upset Ventolin Hfa 18 GM Inh (Albuterol Sulfate) 90 Mcg/Act Aer 1 Puff INH DAILY PRN Atorvastatin (Atorvastatin Calcium) 40 Mg Tab 40 Mg PO HS Pantoprazole (Pantoprazole Sodium) 40 Mg Tab 40 Mg PO DAILY Hydroxyzine Pamoate 50 Mg Cap 50 Mg PO TID PRN Plavix (Clopidogrel Bisulfate) 75 Mg Tab 75 Mg PO DAILY Reported Aspirin 81 Mg Tabdr 81 Mg PO DAILY Zofran (Ondansetron HCl) 4 Mg Tab 4 Mg PO Q6HR PRN Lasix (Furosemide) 20 Mg Tab 20 Mg PO DAILY Potassium Chloride ER (Potassium Chloride) 20 Meq Tab 20 Meq PO BID Symbicort Inh (Budesonide/Formoterol Fumarate) 160-4.5 Mcg/Act Aero 2 Puff INH Q12HR Advair Diskus Inh (Fluticasone-Salmeterol Inh) 100-50 Mcg/Blist Aer 1 Puff INH DAILY Rinse mouth after use. Levothyroxine (Levothyroxine Sodium) 200 Mcg Tab 200 Mcg PO DAILY Hydrocortisone 10 Mg Tab 10 Mg PO TID Take with food to decrease GI upset Nitrostat SL (Nitroglycerin) 0.4 Mg Subl 0.4 Mg SL DIRECTED PRN 1 tablet under the tongue as needed for chest pain. Repeat every 5 minutes for a total of 3 DOSES or call 911 if NO relief. Review of Systems ROS Limitations: Unresponsive Except as stated in HPI: all other systems reviewed are Neg Physical Exam Narrative GENERAL: Well-nourished, well-developed patient, in cardiac arrest. The patient was mottled from the head to her mid abdomen.. SKIN: Focused skin assessment warm/dry. Mottling as above. HEAD: Normocephalic/atraumatic.. EYES: Pupils were fixed and nonreactive. NECK: Trachea midline. CARDIOVASCULAR: Asystolic on presentation. RESPIRATORY: Patient initially being [id number] ventilated. After intubation, equal breath sounds bilaterally with good color change on the colorimetric device. GASTROINTESTINAL: Abdomen soft, nondistended. MUSCULOSKELETAL: No cyanosis, or edema. NEUROLOGICAL: GCS of 3, E1, V1, M1. Data Data Last Documented VS Vital Signs Date Time Temp Pulse Resp B/P Pulse Ox O2 Delivery O2 Flow Rate FiO2 08/18/16 14:31 100 Orders Methylprednisolone So Succ Inj (Solumedr (08/18/16 14:45) Methylprednisolone So Succ Inj (Solumedr (08/18/16 14:38) Epinephrine (1:10,000) Inj (Epinephrine (08/18/16 14:52) MDM Medical Decision Making Medical Screen Exam Complete: Yes Emergency Medical Condition: Yes Interpretation(s) Portable ultrasound using a cardiac window showed 0 cardiac activity at the time of pronouncement patient at 1455. Differential Diagnosis Pulmonary embolus versus acute MT versus metabolic derangement Narrative Course 2-7-lntt-old female with multiple medical issues including Jorge's disease coronary artery disease and CHF, who presents today in cardiac arrest. The patient had 30 minutes of ACLS CPR and management. Despite all the medications and defibrillations, patient never regained a pulse. She was pronounced at 1455. Ultrasound showed no cardiac motion at all. Procedures Procedure Narrative Emergently intubated: INTUBATION: The patient was put in optimal position for the procedure. Using a Mac 4 blade and an 8.0 ET tube, patient was successfully intubated. After intubation, colorimetric capnography was confirmed and equal breath sounds were noted. Absent abdominal sounds noted. Diagnosis Primary Impression: acute cardiac Emmanuel Aly MD August 18, 2016 15:15
== END 2016-08-18 18:08 | disposition expired ==
LOC: NEPE 14:31 → NEPI 18:08
DX: I46.9 Cardiac arrest, cause unspecified (principal); E27.1 Primary adrenocortical insufficiency; I10 Essential (primary) hypertension; E07.9 Disorder of thyroid, unspecified; E78.00 Pure hypercholesterolemia, unspecified; I25.2 Old myocardial infarction; Z79.01 Long term (current) use of anticoagulants; Z86.79 Personal history of other diseases of the circulatory system; Z87.39 Personal history of other diseases of the musculoskeletal system and connective tissue; Z87.09 Personal history of other diseases of the respiratory system; Z86.2 Personal history of diseases of the blood and blood-forming organs and certain disorders involving the immune mechanism; Z87.19 Personal history of other diseases of the digestive system
CPT/HCPCS: 31500; 92950; 96374; 99285; J0171; J0282; J2930